=== PATIENT | female | born 1965 | race Caucasian/White ===

== ENCOUNTER → 2019-11-01 | Outpatient (CLI) | payer BC, SELFPAY | PROVIDERS: Family Provider Family Medicine; Visit Provider Family Medicine | DX: G47.10 Hypersomnia, unspecified (principal) ==

== ENCOUNTER → 2020-01-09 17:51 | Outpatient (BNVA) | payer OTHER, SELFPAY | PROVIDERS: Family Provider Family Medicine; PCP Family Medicine; Visit Provider Nurse Practitioner | DX: R05 Cough (principal); R50.9 Fever, unspecified | CPT/HCPCS: 87804 ==

== ENCOUNTER → 2020-03-10 08:31 | Outpatient (BNVA) | payer SELFPAY | PROVIDERS: Family Provider Family Medicine; PCP Family Medicine; Visit Provider Family Medicine | DX: E03.9 Hypothyroidism, unspecified (principal); I10 Essential (primary) hypertension; E11.9 Type 2 diabetes mellitus without complications; K21.9 Gastro-esophageal reflux disease without esophagitis; N95.1 Menopausal and female climacteric states | CPT/HCPCS: 80053; 80061; 82044; 84443; 85025 ==

== ENCOUNTER 2020-03-27 07:31 | Outpatient (CLI) | payer OTHER, SELFPAY ==
--- NOTE | 2020-03-27 07:41 | MM_ITS ---
WS: [id number] SCREENING DIGITAL MAMMOGRAM WITH CAD HISTORY: SCREEN COMPARISON: 02/09/2019, 01/18/2018, 12/06/2016 Bilateral CC and MLO views submitted. Computer aided detection analyzed. Breast composition: There are scattered areas of fibroglandular density. There are multiple asymmetri es in the central LEFT breast. These appear more prominent than on the most recent examinations. Zaira ins are partially obscured. LEFT breast: Spot compression views (CC and MLO). True ML. Ultrasound to follow if abnormality enedina samayoa. MM/[place] [id number] IMPRESSION: BI-RADS: 0-Incomplete: Need additional imaging evaluation FOLLOW UP: Need Additional Imaging
== END 2020-03-27 07:32 | disposition home or self-care (01) ==
LOC: RADSHAW 07:35
PROVIDERS: PCP Family Medicine; Visit Provider Family Medicine
DX: Z12.31 Encounter for screening mammogram for malignant neoplasm of breast (principal); N64.89 Other specified disorders of breast
CPT/HCPCS: 77067

== ENCOUNTER → 2020-04-10 08:10 | Outpatient (BNVA) | payer OTHER, SELFPAY | PROVIDERS: PCP Family Medicine; Visit Provider Family Medicine | DX: E78.5 Hyperlipidemia, unspecified (principal) | CPT/HCPCS: 80053 ==

== ENCOUNTER 2020-04-21 12:15 | Outpatient (CLI) | payer OTHER, SELFPAY ==
--- NOTE | 2020-04-21 12:00 | MM_ITS ---
WS: [id number] LEFT DIGITAL MAMMOGRAPHY WITH CAD CLINICAL INFORMATION: abnormal mammogram COMPARISON: March 27, 2020 TECHNIQUE: 3 views of the left breast were obtained. FINDINGS: The left breast is composed of heterogeneous fibroglandular density tissue, which can limit the detec tion of small underlying mass lesions. Progressed nodular breast tissue in the central left breast. T his is stable since March 27, 2020 but persists on spot compression images. Ultrasound of this area is pending. . ULTRASOUND BREAST LEFT TECHNIQUE: Ultrasound left breast focused area of concern. CLINICAL INFORMATION: abnormal mammogram COMPARISON: Ultrasound December 29, 2016 FINDINGS: Ultrasound left breast performed from the 6 to 12:00 position. Hypoechoic solid appearing lesion with mild lobulations at the 10:00 position. This lesion at the 10:00 position measures 7.7 x 3.9 x 5.7 m m. This lesion is indeterminant and recommend further evaluation with Ultrasound-Guided Biopsy. Multiple additional small subcentimeter hypoechoic cystic lesions with a few areas of ductal dilatati on. These additional lesions have a benign appearance. MM/[place] [id number] IMPRESSION: BI-RADS: 4B-Suspicious: Intermediate FOLLOW UP: US Guided Biopsy Recommended
--- NOTE | 2020-04-21 12:45 | US_ITS ---
WS: [id number] LEFT DIGITAL MAMMOGRAPHY WITH CAD CLINICAL INFORMATION: abnormal mammogram COMPARISON: March 27, 2020 TECHNIQUE: 3 views of the left breast were obtained. FINDINGS: The left breast is composed of heterogeneous fibroglandular density tissue, which can limit the detec tion of small underlying mass lesions. Progressed nodular breast tissue in the central left breast. T his is stable since March 27, 2020 but persists on spot compression images. Ultrasound of this area is pending. . ULTRASOUND BREAST LEFT TECHNIQUE: Ultrasound left breast focused area of concern. CLINICAL INFORMATION: abnormal mammogram COMPARISON: Ultrasound December 29, 2016 FINDINGS: Ultrasound left breast performed from the 6 to 12:00 position. Hypoechoic solid appearing lesion with mild lobulations at the 10:00 position. This lesion at the 10:00 position measures 7.7 x 3.9 x 5.7 m m. This lesion is indeterminant and recommend further evaluation with Ultrasound-Guided Biopsy. Multiple additional small subcentimeter hypoechoic cystic lesions with a few areas of ductal dilatati on. These additional lesions have a benign appearance. US/US breast LT limited* [id number] IMPRESSION: BI-RADS: 4B-Suspicious: Intermediate FOLLOW UP: US Guided Biopsy Recommended
== END 2020-04-21 12:16 | disposition home or self-care (01) ==
LOC: RADSHAW 12:18
PROVIDERS: PCP Family Medicine; Visit Provider Family Medicine
DX: R92.8 Other abnormal and inconclusive findings on diagnostic imaging of breast (principal); N64.89 Other specified disorders of breast
CPT/HCPCS: 76642; 77065

== ENCOUNTER 2020-04-24 10:21 | Outpatient (CLI) | payer OTHER, SELFPAY ==
--- NOTE | 2020-04-24 11:45 | US_ITS ---
WS: [id number] ULTRASOUND-GUIDED LEFT BREAST BIOPSY CLINICAL INFORMATION: ABNORMAL MAMMOGRAM FINDINGS: The procedure including risks, benefits, and complications were discussed with the patient who agreed to proceed. Using sterile technique patient was prepped and draped in the usual sterile fashion. Aft er 1% lidocaine utilizing real-time ultrasound guidance 6 14-gauge cores were obtained of the left br east lesion at the 10 o'clock position. Subsequently a titanium clip was placed in the biopsy cavity. No immediate complications. 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 Uncomplicated ultrasound-guided left breast biopsy. 2. 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 No malignancy or carcinoma in situ identified. FOCAL FLAT EPITHELIAL ATYPIA has been associated with higher risk lesions in so me instances. Recommended breast surgical consultation for consideration of lum pectomy. BI-RADS: 4B-Suspicious: Intermediate FOLLOW UP: Surgical Biopsy Recommended
== END 2020-04-24 10:22 | disposition home or self-care (01) ==
LOC: RAD 10:24
PROVIDERS: PCP Family Medicine; Visit Provider Family Medicine
DX: R92.8 Other abnormal and inconclusive findings on diagnostic imaging of breast (principal); N62 Hypertrophy of breast
CPT/HCPCS: 19083; 88305; J2001

== ENCOUNTER → 2020-05-20 08:26 | Outpatient (BNVA) | payer OTHER, SELFPAY | PROVIDERS: PCP Family Medicine; Visit Provider Family Medicine | DX: E78.5 Hyperlipidemia, unspecified (principal); E83.52 Hypercalcemia | CPT/HCPCS: 80061; 82310; 83970 ==

== ENCOUNTER 2020-06-04 13:49 | Outpatient (CLI) | payer OTHER, SELFPAY ==
--- NOTE | 2020-06-04 14:15 | US_ITS ---
WS: [id number] ULTRASOUND THYROID TECHNIQUE: Ultrasound of the thyroid. CLINICAL INFORMATION: ELEVATED PTH COMPARISON: None. FINDINGS: Thyroid: Right and left thyroid lobes are enlarged with heterogeneous echotexture. The largest nodule in the left lateral thyroid solid in appearance and hypoechoic. This Measures 1.0 x 0.7 x 0.6 cm Right thyroid lobe: 4.4 cm x 1.1 cm x 1.5 cm Left thyroid lobe: 4.0 cm x 0.8 cm x 1.5 cm. Isthmus: 0.3 mm. Cervical lymphadenopathy: None. US/US thyroid [id number] IMPRESSION: 1. Enlarged thyroid with heterogeneous echotexture compatible with goiter. 2. Dominant solid nodule in the left thyroid lobe measures 1.0 CM. Recommend 1 2 month follow-up.
== END 2020-06-04 13:50 | disposition home or self-care (01) ==
LOC: RAD 13:51
PROVIDERS: PCP Family Medicine; Visit Provider Family Medicine
DX: E34.9 Endocrine disorder, unspecified (principal); E04.9 Nontoxic goiter, unspecified; E04.1 Nontoxic single thyroid nodule
CPT/HCPCS: 76536

== ENCOUNTER 2020-06-04 14:54 | Outpatient (CLI) | payer OTHER, SELFPAY ==
--- NOTE | 2020-06-04 15:03 | XR_ITS ---
WS: [id number] DEXA (DUAL ENERGY X-RAY ABSORPTIOMETRY) Bone mineral density was performed using a Ignite100 machine. HISTORY: post menopausal COMPARISON: None available. Lumbar spine BMD (L1-L4): 1.043 g/cm2 T score: -1.1 Z score: -0.7 Total hip BMD: Left: 1.012 g/cm2. T score: 0.0 Z score: 0.4 Right: 1.060 g/cm2. T score: 0.4 Z score: 0.8 10 year probability of a major osteoporotic fracture is 6%. XR/XR DEXA axial skeleton* [id number] IMPRESSION: OSTEOPENIA based upon the WHO classification for females.
== END 2020-06-04 14:55 | disposition home or self-care (01) ==
LOC: RADWPI 14:58
PROVIDERS: PCP Family Medicine; Visit Provider Family Medicine
DX: Z78.0 Asymptomatic menopausal state (principal); M85.89 Other specified disorders of bone density and structure, multiple sites
CPT/HCPCS: 77080

== ENCOUNTER → 2020-06-11 08:54 | Outpatient (BNVA) | payer OTHER, SELFPAY | PROVIDERS: PCP Family Medicine; Visit Provider Internal Medicine | DX: E21.3 Hyperparathyroidism, unspecified (principal); E03.9 Hypothyroidism, unspecified; E04.1 Nontoxic single thyroid nodule; I10 Essential (primary) hypertension | CPT/HCPCS: 99203 ==

== ENCOUNTER 2020-07-02 10:27 | Outpatient (CLI) | payer OTHER, SELFPAY ==
[2020-07-02 11:32] LABS: Calcium 10.7 mg/dL (8.5-10.5); Parathyroid Hormone 50.2 pg/mL (15-65)
[2020-07-02 11:45] LABS: 25 Hydroxy Vitamin D 44 ng/mL (30-100); Thyroid Stimulating Hormone 0.14 uIU/mL (0.27-4.20)
[2020-07-02 12:12] LABS: Free T4 Free Thyroxine 1.84 ng/dL (0.82-1.77)
== END 2020-07-02 10:28 | disposition home or self-care (01) ==
LOC: LAB 10:33
PROVIDERS: PCP Family Medicine; Visit Provider Internal Medicine
DX: E03.9 Hypothyroidism, unspecified (principal); E21.3 Hyperparathyroidism, unspecified
CPT/HCPCS: 82306; 82310; 83970; 84439; 84443

== ENCOUNTER 2020-07-04 07:14 | Outpatient (CLI) | payer OTHER, SELFPAY ==
[2020-07-04 07:42] LABS: Urine Creatinine 44 mg/dL (28-217)
[2020-07-04 08:28] LABS: Total Volume Urine 3800 ml
[2020-07-04 08:29] LABS: Calcium 24 Hour Urine 365 mg/24hr (100-300); Urine Calcium Result 9.6 mg/dL
[2020-07-04 08:47] LABS: Total Volume Urine 3800 ml
== END 2020-07-04 07:15 | disposition home or self-care (01) ==
PROVIDERS: PCP Family Medicine; Visit Provider Internal Medicine
DX: E03.9 Hypothyroidism, unspecified (principal); E21.3 Hyperparathyroidism, unspecified
CPT/HCPCS: 82340; 82570

== ENCOUNTER → 2020-07-16 08:47 | Outpatient (BNVA) | payer OTHER, SELFPAY | PROVIDERS: PCP Family Medicine; Visit Provider Internal Medicine | DX: E03.9 Hypothyroidism, unspecified (principal); E04.1 Nontoxic single thyroid nodule; E21.3 Hyperparathyroidism, unspecified; I10 Essential (primary) hypertension | CPT/HCPCS: 99214 ==

== ENCOUNTER → 2020-09-08 08:27 | Outpatient (BNVA) | payer OTHER, SELFPAY | PROVIDERS: PCP Family Medicine; Visit Provider Family Medicine | DX: I10 Essential (primary) hypertension (principal); Z13.6 Encounter for screening for cardiovascular disorders; M79.641 Pain in right hand; M79.642 Pain in left hand | CPT/HCPCS: 80053; 85025; 85651; 86038; 86140; 86431 ==

== ENCOUNTER → 2020-09-29 09:05 | Outpatient (BNVA) | payer OTHER, SELFPAY | PROVIDERS: PCP Family Medicine; Visit Provider Internal Medicine | DX: M79.641 Pain in right hand (principal); Z79.899 Other long term (current) drug therapy; Z11.59 Encounter for screening for other viral diseases; M79.642 Pain in left hand; D86.9 Sarcoidosis, unspecified; R76.8 Other specified abnormal immunological findings in serum | CPT/HCPCS: 36415; 99204 ==

== ENCOUNTER 2020-09-29 10:08 | Outpatient (CLI) | payer OTHER, SELFPAY ==
--- NOTE | 2020-09-29 10:17 | XR_ITS ---
WS: [id number] TECHNIQUE: 2 views of the right hand CLINICAL INFORMATION: M79.641 - Pain in right hand COMPARISON: None. FINDINGS: Normal metacarpals. Normal MCP joint. Metacarpal heads are normal in appearance. Mild narrowing PIP a nd DIP joints. No evidence of acute fracture or dislocation. Radiocarpal joint: Normal. Carpal bones: Normal. XR/XR hand RT 2V [id number] IMPRESSION: No significant erosive changes.
--- NOTE | 2020-09-29 10:17 | XR_ITS ---
WS: [id number] TECHNIQUE: 2 views of the left hand CLINICAL INFORMATION: M79.641 - Pain in right hand COMPARISON: None. FINDINGS: Normal metacarpals. Normal MCP joint. Metacarpal heads are normal in appearance. Mild narrowing of th e PIP and DIP joints. No evidence of acute fracture or dislocation. Radiocarpal joint: Normal. 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 XR/XR hand LT 2V [id number] IMPRESSION: 1. 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 2. Mild IP joint narrowing. 3. No erosive changes.
== END 2020-09-29 10:09 | disposition home or self-care (01) ==
LOC: RADWPI 10:13
PROVIDERS: PCP Family Medicine; Visit Provider Internal Medicine
DX: M79.641 Pain in right hand (principal); M79.642 Pain in left hand; M19.042 Primary osteoarthritis, left hand
CPT/HCPCS: 73120; 82550; 82728; 85651; 86140; 86431; 86704; 86803; 87340

== ENCOUNTER → 2020-10-07 09:29 | Outpatient (BNVA) | payer OTHER, SELFPAY | PROVIDERS: PCP Family Medicine; Visit Provider Internal Medicine | DX: Z79.899 Other long term (current) drug therapy (principal) | CPT/HCPCS: 36415; 80053; 82550; 84100 ==

== ENCOUNTER → 2020-10-09 09:15 | Outpatient (BNVA) | payer OTHER, SELFPAY | PROVIDERS: PCP Family Medicine; Visit Provider Internal Medicine | DX: Z11.1 Encounter for screening for respiratory tuberculosis; R76.8 Other specified abnormal immunological findings in serum; R74.8 Abnormal levels of other serum enzymes; R79.89 Other specified abnormal findings of blood chemistry; E03.9 Hypothyroidism, unspecified; Z87.891 Personal history of nicotine dependence; M79.641 Pain in right hand; M79.642 Pain in left hand | CPT/HCPCS: 99213 ==

== ENCOUNTER → 2020-10-17 09:42 | Outpatient (BNVA) | payer OTHER, SELFPAY | PROVIDERS: PCP Family Medicine; Visit Provider Internal Medicine | DX: R74.8 Abnormal levels of other serum enzymes (principal); R76.8 Other specified abnormal immunological findings in serum; R79.89 Other specified abnormal findings of blood chemistry; Z79.899 Other long term (current) drug therapy | CPT/HCPCS: 36415; 82550; 82728; 83516 ==

== ENCOUNTER 2020-11-01 12:42 | Observation (INO) | payer OTHER, SELFPAY ==
[2020-11-01] VITALS (13 sets, daily range): BP systolic 113–160; BP diastolic 71–109; PULSE 65–110; RESP 14–21; TEMP 36.3–36.9; O2SAT 93–99; BMI 30.3
--- NOTE | 2020-11-01 | SCC_ITS ---
Procedure: 1. ORIF bimalleolar ankle Grade 1 2. I+D down to bone of medial malleolus 3. Complex closure of 1 cm medial wound 27.2 seconds of fluoroscopic guidance, for a cumulative dose of 0.77 mGy, was provided to Dr. Walters by the radiology department. C-arm images of the LEFT ankle were saved for the patient's permanent record. [facility] HOSPITALTabby
--- NOTE | 2020-11-01 12:50 | XRR_ITS ---
PROCEDURE INFORMATION: Exam: XR Left Ankle Exam date and time: 11/01/2020 12:51 PM Age: 55 years old Clinical indication: Injury or trauma; Fall; Blunt trauma; Ankle; Left; Additional info: Open FX TECHNIQUE: Imaging protocol: XR Left ankle. Views: 3 or more views. COMPARISON: No relevant prior studies available. FINDINGS: Bones/joints: There is a mildly displaced trimalleolar fracture. Soft tissues: Mild soft tissue edema is seen in the medial and lateral ankle XR/XR ankle LT min 3V* [id number] IMPRESSION: 1. Mildly displaced trimalleolar fracture 2. Mild soft tissue edema
--- NOTE | 2020-11-01 12:50 | XRR_ITS ---
PROCEDURE INFORMATION: Exam: XR Chest, 1 View Exam date and time: 11/01/2020 12:51 PM Age: 55 years old Clinical indication: Injury or trauma; Fall; Blunt trauma (contusions or hematomas); Additional info: Dyspnea/cough TECHNIQUE: Imaging protocol: XR of the chest Views: 1 view. COMPARISON: [facility] Chest 2 views 10/24/2014 9:23 AM FINDINGS: Lungs: Unremarkable. No consolidation. Pleural space: Unremarkable. No pleural effusion. No pneumothorax. Heart/Mediastinum: Unremarkable. No cardiomegaly. Bones/joints: Unremarkable. XR/XR chest 1V portable [id number] IMPRESSION: No acute findings.
--- NOTE | 2020-11-01 12:50 | ECG_ITS ---
[facility] Test Date: 2020-11-01 Pat Name: Tamara Plascencia Department: Room: Gender: Female Station Master: : [id number] Requested By: Luis Peter Order Number: [id number] Etienne MD: Dane Velasquez M.D. Measurements Intervals Timpson Rate: 67 P: 50 SC: 151 QRS: 19 QRSD: 86 T: 33 QT: 385 QTc: 409 Interpretive Statements SINUS RHYTHM LOW QRS VOLTAGE IN PRECORDIAL LEADS [QRS DEFLECTION < 1.0 mV IN CHEST LEADS] No previous ECG available for comparison Electronically Signed On 11-01-2020 16:40:25 BRICK CATCHER by Dane Velasquez M.D. [id number]
[2020-11-01] MEDS: ceFAZolin 1,000 MG in sodium chloride 0.9% (plus) 50 ML 100 MG IV (12:58)
[2020-11-01] MEDS: morphine 4 mg/mL SDV 1 mL IVP ×2 (12:58→13:40)
--- NOTE | 2020-11-01 12:58 | W.ED.EXTPRO ---
HPI - Extremity Problem General: Chief complaint: Extremity Injury, Lower Stated complaint: LEFT ANKLE PAIN Time Seen by Provider: 11/01/20 12:50 History of Present Illness: HPI Narrative: 55-year-old female presents emergency room with complaint of left ankle pain. She was climbing on a compost pile and slipped her ankle got caught and turned and she had any eversion injury. Her daughter who is a nurse here at our facility sent to me a picture from the scene of the ankle there is significant eversion. Patient was brought in by EMS on arrival here noted that the patient had a open fracture with a laceration that had bled inside of the blanket splint overlying the medial malleolus. Patient denies any other injury. She last ate around 6 AM today she was tested positive for Covid on August 10 of this year. She is not recently had any cough cold or flu symptoms has completely recovered from the illness. Not strike her head no other injuries. MD Complaint: joint pain Onset (ago): minute(s) Pain Consistency: constant Location: left Severity scale (1-10): 10 Quality: sharp and constant Relieving factors: immobilization and rest Exacerbating factors: palpation Associated symptoms: Deny arthralgias, chest pain, fever(s), myalgias, rash, short of breath or other Review of Systems Const: Denies: fever(s) ENMT: Denies: throat pain, ear or mastoid pain, nasal discharge or nasal congestion Card: Denies: chest pain Resp: Denies: dyspnea, productive cough or non-productive cough GI: Denies: abdominal pain, nausea, vomiting, hematemesis, coffee ground emesis, diarrhea, constipation, bloating, hematochezia or melena : Denies: flank pain, difficulty voiding, dysuria, urinary frequency or urinary urgency Skin/Breast: Denies: rash PFSH ED PFSH: Medical History BI-RADS category 4B mammogram result Essential hypertension History of 2019 novel coronavirus disease (COVID-19) Hot flashes due to menopause Hypothyroidism Mass of soft tissue of lower extremity Plantar fasciitis, bilateral Sleep apnea Varicose veins of left lower extremity Surgical History H/O carpal tunnel repair H/O colonoscopy 7 yrs ago H/O excision of mass left lower leg. DOS:10/26/19 H/O tubal ligation History of appendectomy Family History Denies family history of Diabetes CAD (coronary artery disease) Clotting disorder Dementia Hyperlipidemia Psychiatric illness Chronic kidney disease (CKD) Suicide Anesthesia complication Bleeding disorder Family history of premature coronary artery disease Lung disease Cancer Hypertension Stroke Social History Smoking and tobacco status: former smoker Alcohol intake: never Household members: spouse Marital status: Current occupational status: employed History of recent travel: No Physical Exam Const: COMMON NORMALS: no acute distress GENERAL APPEARANCE: cooperative and comfortable ORIENTATION/CONSCIOUSNESS: Yes awake, Yes oriented to person, Yes oriented to place and Yes oriented to time HENMT: COMMON NORMALS: normocephalic, atraumatic, hearing grossly normal bilaterally, Normal nasal mucous membranes and turbinates present, moist oral mucous membranes and oropharynx normal HEAD & SCALP: normocephalic and atraumatic NOSE: Normal nasal mucous membranes and turbinates present Eye: COMMON NORMALS: Equal, round and reactive pupils present, EOMs intact bilaterally, conjunctivae normal and no scleral icterus CONJUNCTIVA: Yes conjunctivae normal PUPIL: Yes Equal, round and reactive pupils present Neck/C-Spine: COMMON NORMALS: full ROM, no lymphadenopathy and supple Resp: COMMON NORMALS: normal respiratory effort, No retractions, No use of accessory muscles and clear to auscultation bilaterally AUSCULTATION: clear to auscultation bilaterally Cardio: COMMON NORMALS: regular rate, regular rhythm and No murmurs present (Cardio) RATE: regular rate RHYTHM: regular rhythm GI: COMMON NORMALS: Soft to palpation and No hepatosplenomegaly present AUSCULTATION: Yes normoactive bowel sounds PALPATION: Yes Soft to palpation, No Tenderness to palpation present (GI), No Guarding due to palpation present (GI) and Yes No hepatosplenomegaly present Extremity: COMMON NORMALS: capillary refill normal, no clubbing, cyanosis or edema, no calf tenderness and no pedal edema NARRATIVE EXTREMITY EXAM: Open wound as described below in the skin section of the exam. Dorsalis pedis pulse capillary refill and function normal. Neuro: SENSORIUM/ORIENTATION: Yes oriented to person, Yes oriented to place and Yes oriented to time Skin: NARRATIVE SKIN EXAM: Open wound overlying the medial malleolus approximately a centimeter to a centimeter and a half in length there was some bleeding from it earlier evidenced by the blood on the blanket splint there is no active bleeding at this time. Course Vital Signs: Vital signs: Vital Signs Temperature 98.1 F 11/01/20 16:20 Pulse Rate 92 11/01/20 16:20 Respiratory Rate 18 11/01/20 16:20 Blood Pressure 139/80 11/01/20 16:20 Pulse Oximetry 95 11/01/20 16:20 MDM - Extremity (Nontraumatic) MDM Narrative: Medical decision making narrative: X-ray shows a trimalleolar fracture. Exam findings on the skin she has an obvious open fracture of the bone is not exposed at this time but did hernandez the skin. Discussed with Dr. Walters he will take her to the operating room given a gram of Ancef she tells me her tetanus is up-to-date already given her appropriate pain medications her last meal was at 6 AM. Lab Data: Labs: Lab Results 11/01/20 11/01/20 Range/Units 13:24 13:24 WBC 9.2 (4.0-10.0) 10^3/ uL RBC 4.62 (4.1-5.3) 10^6/u L Hgb 14.2 (11.5-15.3) g/dL Hct 41.9 (37.0-47.0) % MCV 90.7 (81-99) fL MCH 30.7 (28.0-34.0) pg MCHC 33.9 (30.0-36.0) g/dL RDW 12.4 (12.1-15.1) % Plt Count 256 (130-400) 10^3/c mm MPV 9.3 (7.4-10.4) fL Neut % (Auto) 65.6 % Lymph % (Auto) 23.1 % Victoria % (Auto) 7.7 % Eos % (Auto) 2.4 % Baso % (Auto) 0.9 % Neut # (Auto) 6.04 (1.8-7.7) 10^3/u L Lymph # (Auto) 2.1 (0.8-4.8) 10^3/u L Victoria # (Auto) 0.7 (0.2-0.9) 10^3/u L Eos # (Auto) 0.2 (0.0-0.8) 10^3/u L Baso # (Auto) 0.1 (0.0-0.1) 10^3/u L Nucleated RBC % (a uto) 0 % Nucleated RBCs # 0.0 /100WBC Sodium 134 L (136-145) mmol/L Potassium 4.2 (3.5-5.1) mmol/L Chloride 99 (98-107) mmol/L Carbon Dioxide 26 (22-29) mmol/L Anion Gap 13.2 (5-19) BUN 24 H (6-20) mg/dL Creatinine 0.6 (0.5-0.9) mg/dL GFR Calculation 103.0 (90-130) mL/min Glucose 106 (65-115) mg/dL Calculated Osmolal ity 282 L (285-295) mOsm/k g Calcium 10.3 (8.5-10.5) mg/dL Total Bilirubin 0.3 (0.15-1.2) mg/dL AST 25 (0-32) U/L ALT 40 H (0-33) U/L Alkaline Phosphata se 78 (35-105) IU/L Total Protein 7.0 (6.6-8.7) g/dL Albumin 4.3 (3.5-5.2) g/dL Globulin 2.7 (1.3-4.6) g/dL Discharge Plan Discharge Admit Provider: Subhash Walters Clinical Impression: Open trimalleolar fracture of left ankle Condition: Stable Coding Level of Care Code ED Readiness Paraprofessional for Chg Fwd Exam Comprehensive
[2020-11-01 13:32] LABS: Basophils # 0.1 10^3/uL (0.0-0.1); Basophils % 0.9 %; Eosinophils # 0.2 10^3/uL (0.0-0.8); Eosinophils % 2.4 %; Hematocrit 41.9 % (37.0-47.0); Hemoglobin 14.2 g/dL (11.5-15.3); Lymphocytes # 2.1 10^3/uL (0.8-4.8); Lymphocytes % 23.1 %; Mean Corpuscular HGB Conc 33.9 g/dL (30.0-36.0); Mean Corpuscular Hemoglobin 30.7 pg (28.0-34.0); Mean Corpuscular Volume 90.7 fL (81-99); Mean Platelet Volume 9.3 fL (7.4-10.4); Monocytes # 0.7 10^3/uL (0.2-0.9); Monocytes % 7.7 %; Neutrophils # 6.04 10^3/uL (1.8-7.7); Neutrophils % 65.6 %; Nucleated Red Blood Cells % 0 %; Platelet Count 256 10^3/cmm (130-400); Red Blood Count 4.62 10^6/uL (4.1-5.3); Red Cell Distribution Width 12.4 % (12.1-15.1); White Blood Count 9.2 10^3/uL (4.0-10.0)
--- NOTE | 2020-11-01 13:59 | PM.HP ---
Providers/Chief Complaint Primary Care Provider: Dedra Vega DO Chief Complaint: LEFT ANKLE PAIN History of Present Illness Tamara Plascencia is a 55 year old female She was climbing on a compost pile and slipped her ankle got caught and turned and she had any eversion injury. Patient was brought in by EMS on arrival here noted that the patient had a open fracture with a laceration that had bled inside of the blanket splint overlying the medial malleolus. Patient denies any other injury. She last ate around 6 AM today she was tested positive for Covid on August 10 of this year. She is not recently had any cough cold or flu symptoms has completely recovered from the illness. Not strike her head no other injuries. MD Complaint: joint pain Onset (ago): minute(s) Pain Consistency: constant Location: left Severity scale (1-10): 10 Quality: sharp and constant Relieving factors: immobilization and rest Exacerbating factors: palpation Associated symptoms: Deny arthralgias, chest pain, fever(s), myalgias, rash, short of breath or other Review of Systems Narrative: General ROS: negative for weight changes, fever ENT ROS: negative for nasal congestion, drainage or bleeding, sore throat, dysphagia or ear pain Eyes: PERRL Hematological and Lymphatic ROS: negative for swollen glands or abnormal bleeding Endocrine ROS: negative for polyuria/polydpsia or new changes in weight Respiratory ROS: negative for cough, shortness of breath, or wheezing Cardiovascular ROS: negative for chest pain or dyspnea on exertion Gastrointestinal ROS: negative for reflux, abdominal pain, change in bowel habits, or black or bloody stools Musculoskeletal ROS: negative for back pain, neck pain, or joint pain or swelling except for current problem Neurological ROS: negative for TIA or stoke symptoms Skin: no rashes Medications/Allergies Home Medications Medication Instructions Recorded Confirmed Last Taken Type loratadine 10 mg capsule 10 mg PO DAILY@11/09/19 11/01/20 11/01/20 History CPAP #1 ea 11/16/19 11/01/20 Unknown Rx atorvastatin 10 mg tablet 10 mg PO DAILY #90 tab 08/18/20 11/01/20 Unknown Rx levothyroxine 125 mcg PO DAILY@04 11/01/20 11/01/20 11/01/20 History lisinopril 20 mg PO DAILY@11/01/20 11/01/20 11/01/20 History pantoprazole 40 mg PO DAILY@09 11/01/20 11/01/20 11/01/20 History Allergies Allergy/AdvReac Type Severity Reaction Status Date / Time No Known Allergies Allergy Verified 11/01/20 12:50 PFSH Acute PFSH: Medical History BI-RADS category 4B mammogram result Essential hypertension History of 2019 novel coronavirus disease (COVID-19) Hot flashes due to menopause Hypothyroidism Mass of soft tissue of lower extremity Plantar fasciitis, bilateral Sleep apnea Varicose veins of left lower extremity Surgical History H/O carpal tunnel repair H/O colonoscopy 7 yrs ago H/O excision of mass left lower leg. DOS:10/26/19 H/O tubal ligation History of appendectomy Family History Denies family history of Diabetes CAD (coronary artery disease) Clotting disorder Dementia Hyperlipidemia Psychiatric illness Chronic kidney disease (CKD) Suicide Anesthesia complication Bleeding disorder Family history of premature coronary artery disease Lung disease Cancer Hypertension Stroke Social History Smoking and tobacco status: former smoker Alcohol intake: never Household members: spouse Marital status: Current occupational status: employed History of recent travel: No Vitals/I&O/Wt Last Vital Signs Temp 97.8 F 11/01/20 12:42 Pulse 65 11/01/20 12:42 Resp 18 11/01/20 12:58 BP 160/109 11/01/20 12:42 Pulse Ox 94 11/01/20 12:42 Weight last 48 hrs Weight 188 lb Physical Exam Narrative: EXAM NARRATIVE: Skin: Intact and healthy Swelling: left ankle in splint reported medial ankle wound Motor exam: Flexes and extends toes Data : 11/01/20 13:24 11/01/20 13:24 A&P Assessment and plan (1) Open bimalleolar fracture of left ankle: Status: Acute Additional A&P Information Plan for I+D and ORIF Attestations Medical Necessity Statement*: surgery Coding Level of Care Code Acute Bartender Server for Federico Shabazz Diagnoses Open bimalleolar fracture of left ankle S82.842B
[2020-11-01 14:00] LABS: Alanine Aminotransferase 40 U/L (0-33); Albumin Level 4.3 g/dL (3.5-5.2); Alkaline Phosphatase 78 IU/L (35-105); Anion Gap 13.2 (5-19); Aspartate Amino Transferase 25 U/L (0-32); Blood Urea Nitrogen 24 mg/dL (6-20); Calcium 10.3 mg/dL (8.5-10.5); Carbon Dioxide 26 mmol/L (22-29); Chloride 99 mmol/L (98-107); Globulin 2.7 g/dL (1.3-4.6); Glucose 106 mg/dL (65-115); Osmolality Calculated 282 mOsm/kg (285-295); Potassium 4.2 mmol/L (3.5-5.1); Sodium 134 mmol/L (136-145); Total Bilirubin 0.3 mg/dL (0.15-1.2)
--- NOTE | 2020-11-01 14:05 | ANES.PREANE2 ---
Pre-Anesthetic Assessment Pre-Anesthetic Assessment: Height/Weight: Height 1.68 m Weight 85.275 kg Temp Pulse Resp BP Pulse Ox 97.8 F 65 18 160/109 94 11/01/20 12:42 11/01/20 12:42 11/01/20 12:58 11/01/20 12:42 11/01/20 12:42 Proposed Procedure: Operation Date: 11/01/20 14:20 Proposed Procedures p ORIF Ankle(Left) - Subhash Walters DO Operation Date: 11/01/20 14:00 Proposed Procedures p ORIF Ankle(Not Applicable) - Subhash Walters DO Was Beta Trina taken within 24 hours: N/A Social: Social History: No alcohol and No tobacco Exam: Pre-Anes Outpt Exam: alert, oriented x 3, clear to auscultation bilaterally and regular rate & rhythm Airway: Submandibular: WNL Cervical ROM: WNL MP: 2 Dentition: Full Pulmonary: Pulmonary: None reported CV/HEM: CV/HEM: HTN : : None reported Hepatic: Hepatic: None reported GI: GI: GERD Metabolic: Metabolic: Thyroid Musc/skel: Comments: Left open ankle frx Neuropsych: Neuropsych: None reported Anesthetic Plan: ASA status: 3 Anesthesia: General Risk of > 500 ml blood loss (7ml/kg in children): No PFSH Anesthesia PFSH: Medical History BI-RADS category 4B mammogram result Essential hypertension History of 2019 novel coronavirus disease (COVID-19) Hot flashes due to menopause Hypothyroidism Mass of soft tissue of lower extremity Plantar fasciitis, bilateral Sleep apnea Varicose veins of left lower extremity Surgical History H/O carpal tunnel repair H/O colonoscopy 7 yrs ago H/O excision of mass left lower leg. DOS:10/26/19 H/O tubal ligation History of appendectomy Family History Denies family history of Diabetes CAD (coronary artery disease) Clotting disorder Dementia Hyperlipidemia Psychiatric illness Chronic kidney disease (CKD) Suicide Anesthesia complication Bleeding disorder Family history of premature coronary artery disease Lung disease Cancer Hypertension Stroke Social History Smoking and tobacco status: former smoker Alcohol intake: never Household members: spouse Marital status: Current occupational status: employed History of recent travel: No Data Anesthesia CBC & Chem 7: 11/01/20 13:24 11/01/20 13:24 Other Labs: Laboratory Results - last 48 hr 11/01/20 11/01/20 13:24 13:24 WBC 9.2 RBC 4.62 Hgb 14.2 Hct 41.9 MCV 90.7 MCH 30.7 MCHC 33.9 RDW 12.4 Plt Count 256 MPV 9.3 Neut % (Auto) 65.6 Lymph % (Auto) 23.1 Ponce % (Auto) 7.7 Eos % (Auto) 2.4 Baso % (Auto) 0.9 Neut # (Auto) 6.04 Lymph # (Auto) 2.1 Ponce # (Auto) 0.7 Eos # (Auto) 0.2 Baso # (Auto) 0.1 Nucleated RBC % (auto) 0 Nucleated RBCs # 0.0 Potassium 4.2 Chloride 99 Carbon Dioxide 26 Anion Gap 13.2 Creatinine 0.6 GFR Calculation 103.0 Glucose 106 Calcium 10.3 Total Bilirubin 0.3 AST 25 Alkaline Phosphatase 78 Total Protein 7.0 Albumin 4.3 Globulin 2.7 Cardiac Studies: No Data to Display
[2020-11-01] MEDS: HYDROmorphone 1 mg/mL INJ 1 mL 0.5 MG IVP (14:07)
[2020-11-01] MEDS: sodium chloride 0.9% 1,000 ML 30 ML IV (14:30)
--- NOTE | 2020-11-01 15:12 | XR_ITS ---
WS: [id number] Exam: XR ankle LT min 3V* [id number] Date/Time of Exam: 11/01/2020 3:12 PM Reason For Exam: OR PICS There is plate and screw fixation involving a fracture of the lower fibula. The fractures is in satis factory alignment for healing. 2 screws also stabilize a fracture of the medial malleolus in satisfac tory alignment. Small posterior shelf tibial fracture is noted with minimal displacement. This does n ot involve a significant part of the articulating surface of the lower tibia. XR/XR ankle LT min 3V* [id number] IMPRESSION: 1. Bimalleolar fracture stabilized with internal orthopedic fixation in satisfa ctory alignment. 2. Small posterior shelf tibial fracture without displacement.
--- NOTE | 2020-11-01 16:11 | ANE.PACU2 ---
Inpatient post-anesthesia follow up: Airway intact: Yes Vital signs: Temperature 97.4 F Pulse Rate [Monito r] 65 Pulse Rate 93 Respiratory Rate 15 Blood Pressure [Ri ght Arm] 160/109 Blood Pressure 145/86 Pulse Oximetry 99 Oxygen Delivery Me thod Simple Mask Oxygen Flow Rate 8 Fraction of Inspir ed Oxygen Hydration adequate: Yes Nausea and vomiting: No Pain level: 2 Additional Comments: Sedated
--- NOTE | 2020-11-01 16:20 | PM.OP ---
Operative Report Date of procedure: November 01, 2020 Pre-op Diagnosis: left open ankle fracture bimalleolar Type I open Post-op diagnosis: same Post-op Findings: 1. ORIF bimalleolar ankle Grade 1 2. I+D down to bone of medial malleolus 3. complex closure of 1 cm wound Surgeon: Subhash Walters Anesthesia: General Estimated blood loss (mL): 25 Condition: stable Disposition: PACU Procedure: 1. ORIF bimalleolar ankle Grade 1 2. I+D down to bone of medial malleolus 3. Complex closure of 1 cm medial wound Patient is brought to the operative suite placed in the supine position all areas impingement were well-padded patient's prepped and draped sterile fashion. Tenderness brought to the medial malleolus where the wound was it had approximately 1 cm wound. The wound was extended superiorly inferiorly. Was debrided a small piece of bone was taken out. Wound was debrided all the way down to the bone. Next attention was brought to the lateral malleolus. Skin tear is made over the lateral malleolus. Fracture fragments were identified. The fibula was opened and exposed fractures identified edges were cleaned fracture was reduced and injury to posterior screws placed to hold the fracture reduced. And then a Jeanette fibular plate lateral fibular plate was placed 3 screws were placed distal to fracture 3 screws proximally fracture. Next attention was brought to the medial malleolus. The fracture was cleaned more and irrigated. And then the fracture was reduced. The medial malleolus was held reduced with a [id number] reduction clamp. And then 2 guidewires for the cannulated screws were placed. 240 cannulated screws from Jeanette were placed to hold the fracture in place. These were sized 46 screws. AP lateral mortise views were taken to ensure that the fracture was adequately reduced and the screws were in preposition. Next attention was brought to closing the wounds. The medial wound was closed in a layered fashion this was the open wound. This was done using Vicryl and then nylon suture. The fibula incision was closed with Vicryl and nylon suture as well. Patient was then placed in a posterior splint and transferred to the PACU in stable condition
[2020-11-01] MEDS: HYDROcodone-acetaminophen 5-325 mg Tablet PO ×2 (17:13→21:04)
[2020-11-01] MEDS: acetaminophen 500 mg Tablet 1000 MG PO (17:14)
[2020-11-01] MEDS: morphine 4 mg/mL SDV 1 mL 1 MG IVP (20:04)
[2020-11-01] MEDS: sodium chloride 0.9% 1,000 ML 80 ML IV (21:05)
[2020-11-02] VITALS: BP 119/72; PULSE 82; RESP 16; O2SAT 95
[2020-11-02] MEDS: acetaminophen 500 mg Tablet 1000 MG PO (00:15)
[2020-11-02 00:45] VITALS: PULSE 78; RESP 18; O2SAT 96
[2020-11-02] MEDS: HYDROcodone-acetaminophen 5-325 mg Tablet PO ×3 (01:10→13:26)
[2020-11-02 04:00] VITALS: BP 104/65; PULSE 73; RESP 16; O2SAT 97
[2020-11-02] MEDS: enoxaparin 40 mg/0.4 mL Syringe SUBCUT (04:27)
[2020-11-02] MEDS: levothyroxine 125 mcg Tablet PO (04:27)
[2020-11-02] MEDS: loratadine 10 mg Tablet PO (06:28)
[2020-11-02] MEDS: lisinopril 20 mg Tablet PO (06:28)
[2020-11-02] MEDS: pantoprazole DR 40 mg Tablet PO (09:03)
--- NOTE | 2020-11-02 09:53 | PM.DCS ---
Discharge Providers Date of Admission: 11/01/20 15:36 Date of Discharge: November 02, 2020 Attending Provider at Admission: Subhash Walters DO Attending Provider at Discharge: Subhash Walters DO Primary Care Provider: Dedra Vega DO Diagnoses at Discharge Discharge Diagnosis (1) Open bimalleolar fracture of left ankle: Status: Acute Reason for Visit Reason for Visit: LEFT ANKLE PAIN Hospital Course Hospital Course Patient was admitted to the hospital after open reduction internal fixation and irrigation and debridement of her left open ankle fracture. She was kept in the hospital for 2 doses of antibiotics. She will be discharged home today. She is to remain nonweightbearing on this left lower extremity. She does take aspirin for DVT prophylaxis. I will see her in the clinic in 2 weeks. There were no issues with her stay. Physical Exam Narrative: EXAM NARRATIVE: Splint is intact in the left lower extremity. Patient is able to wiggle her toes good cap refill sensation is intact. Discharge Data Data Completed and Pending: Completed Studies During Hospitalization Category Date Time Status XR ankle LT min 3 V* [id number] Stat Exams 11/01/20 12:50 Completed XR chest 1V joseline ble [id number] Stat Exams 11/01/20 12:50 Completed Pending at discharge Category Date Time Status C-arm Fluoroscopy [id number] Routine Exams 11/01/20 13:31 Taken XR ankle LT min 3 V* [id number] Routine Exams 11/01/20 15:12 Taken Labs from last 24 hours 11/01/20 11/01/20 13:24 13:24 WBC 9.2 RBC 4.62 Hgb 14.2 Hct 41.9 MCV 90.7 MCH 30.7 MCHC 33.9 RDW 12.4 Plt Count 256 MPV 9.3 Neut % (Auto) 65.6 Lymph % (Auto) 23.1 [place] % (Auto) 7.7 Eos % (Auto) 2.4 Baso % (Auto) 0.9 Neut # (Auto) 6.04 Lymph # (Auto) 2.1 [place] # (Auto) 0.7 Eos # (Auto) 0.2 Baso # (Auto) 0.1 Nucleated RBC % (a uto) 0 Nucleated RBCs # 0.0 Sodium 134 L Potassium 4.2 Chloride 99 Carbon Dioxide 26 Anion Gap 13.2 BUN 24 H Creatinine 0.6 GFR Calculation 103.0 Glucose 106 Calculated Osmolal ity 282 L Calcium 10.3 Total Bilirubin 0.3 AST 25 ALT 40 H Alkaline Phosphata se 78 Total Protein 7.0 Albumin 4.3 Globulin 2.7 Vitals: Last Vital Signs Temp 97.7 F 11/01/20 21:34 Pulse 73 11/02/20 04:00 Resp 16 11/02/20 04:00 BP 104/65 11/02/20 04:00 Pulse Ox 97 11/02/20 04:00 Discharge Plan Discharge Patient Disposition: Home Condition: Stable Prescriptions: New hydrocodone-acetaminophen 5-325 mg Tablet 1 - 2 tab PO Q4H PRN (Reason: Breakthrough Pain) Qty: 40 RF: 0 Continued loratadine 10 mg capsule 10 mg PO DAILY@06 RF: 0 (DME) CPAP Qty: 1 RF: 0 atorvastatin 10 mg tablet 10 mg PO DAILY Qty: 90 RF: 0 lisinopril 20 mg tablet 20 mg PO DAILY@06 RF: 0 pantoprazole 40 mg tablet,delayed release (DR/EC) 40 mg PO DAILY@09 RF: 0 levothyroxine 125 mcg capsule 125 mcg PO DAILY@04 RF: 0 Discharge Orders: Discharge Order (Routine); Ordered 11/02/20 Ordered By: Subhash Walters Other Ambulatory Orders: DME: Walker (Order) Location: None Selected Ordered By: Subhash Walters Discharge Diet: Advance as tolerated and Usual diet Discharge Activity: Limit activity as instructed Activity Restrictions/Additional Instructions: You are being discharged from the hospital today during which time you have been under the care of Selena. You had a open left ankle fracture fracture. You were treated for this injury with ORIF left ankle. You may resume you normal diet (including any special diets as directed by your primary doctor) as well as your home medications. You should follow up with you primary doctor if you have any questions regarding medication you took prior to your stay in the hospital. You may take your pain medication as prescribed. After the first few days, take your pain medication as needed. Do not drive or drink alcohol while taking your pain medication. Your injury may increase your risk of developing a blood clot,or DVT, in your arm or leg. This could potentially dislodge and travel to your lungs and become a life threatening condition called apulmonary embolus,or PE. You have been prescribed aspirin to be taken to prevent this. Frequent movement of the toes will also help prevent this from occurring. If you develop any new or worsening cough, chestpain, bloody sputum or shortness of breath, call 911 or go to the EmergencyRoom. Always keep your surgical incision/dressing clean and dry. If you experience increasing pain at your incision site, redness, swelling, increasing discharge, foul odors, or fevers (greater than 100.4), night sweats or chills you should call the office at the above number. If you feel this is an emergency you should be evaluated in the Emergency Department of a nearby hospital. Orthopedic Patient Instructions Summary: Weight Bearing: Nonweightbearing left lower extremity Activity: As tolerated. Diet: Regular. Splint Care: Keep splint clean and dry. Cover with a plastic bag for bathing. Wound Care: Keep dressing clean and dry. Anticoagulation: Aspirin a day Pain Medication: Take only as needed. Ice, rest and elevation will be of great benefit. Please plan to follow-up [facility] Dr Walters in 2 weeks. You will need to call the clinic [phone] to schedule this visit. Thank you far allowing me to participate in your care. Do not hesitate to call the office with any questions or concerns. Discharge Attestations Time Spent in Discharge Care*: less than 30 min Quality Metrics Clinical Quality Measures During this hospital stay, did patient experience: None Coding Level of Care Code Acute Developer Support Engineer for Federico Shabazz Diagnoses Open bimalleolar fracture of left ankle S82.842B
--- NOTE | 2020-11-02 10:28 | DCPLANNER ---
Field Operations Farm Manager responds to walker order on this pt that is currently overflow in the OB. Per her nurse; use HOME. Field Operations Farm Manager faxes the unsigned order to HOME and phones the Telegraphic Typewriter Operator professional housing consultant - Iván. He will be here with it in less than an hour.
[2020-11-02 12:56] VITALS: BP 110/69; PULSE 77; RESP 17; TEMP 36.7
[2020-11-02 13:45] VITALS: BP 110/69; PULSE 77; RESP 17; TEMP 36.7
== END 2020-11-02 13:45 | disposition home or self-care (01) ==
LOC: ER 13:06 → OR 13:14 → OBGYN 16:43
PROVIDERS: Admitting Provider Orthopaedic Surgery; Emergency Provider Family Medicine; PCP Family Medicine; Visit Provider Orthopaedic Surgery
PROC: (CPT 11012; principal; 2020-11-01 14:00)
DX: S82.842B Displaced bimalleolar fracture of left lower leg, initial encounter for open fracture type I or II (principal); R26.81 Unsteadiness on feet; I10 Essential (primary) hypertension; K21.9 Gastro-esophageal reflux disease without esophagitis; Z86.19 Personal history of other infectious and parasitic diseases; E03.9 Hypothyroidism, unspecified; G47.30 Sleep apnea, unspecified; Z87.891 Personal history of nicotine dependence
CPT/HCPCS: 11012; 12031; 27814; 12345; 71045; 73610; 76000; 80053; 85025; 93005; 96361; 96365; 96366; 96367; 96372; 96375; 96376; 97116; 97161; 97165; 99282; 99285; C1713; G0378; J0131; J0690; J1100; J1170; J1650; J1885; J2270; J2405; J2704; J2710; J3010; J3490; J7030

== ENCOUNTER → 2020-11-18 14:09 | Outpatient (BNVA) | payer OTHER, SELFPAY | PROVIDERS: PCP Family Medicine; Visit Provider Orthopaedic Surgery | DX: S82.842B Displaced bimalleolar fracture of left lower leg, initial encounter for open fracture type I or II (principal) | CPT/HCPCS: 73610 ==

== ENCOUNTER 2020-11-18 15:28 | Outpatient (CLI) | payer OTHER, SELFPAY | END 2020-11-18 15:29 | disposition home or self-care (01) | LOC: SPT 15:33 | PROVIDERS: PCP Family Medicine; Visit Provider Orthopaedic Surgery | DX: Z46.89 Encounter for fitting and adjustment of other specified devices (principal); Z48.89 Encounter for other specified surgical aftercare; S82.842B Displaced bimalleolar fracture of left lower leg, initial encounter for open fracture type I or II; X58.XXXD Exposure to other specified factors, subsequent encounter | CPT/HCPCS: 97760; L4361 ==

== ENCOUNTER → 2020-12-16 13:46 | Outpatient (BNVA) | payer OTHER, SELFPAY | PROVIDERS: PCP Family Medicine; Visit Provider Orthopaedic Surgery | DX: S82.842B Displaced bimalleolar fracture of left lower leg, initial encounter for open fracture type I or II (principal); Z48.89 Encounter for other specified surgical aftercare; X58.XXXA Exposure to other specified factors, initial encounter | CPT/HCPCS: 73610 ==

== ENCOUNTER 2020-12-19 13:32 | Outpatient (RCR) | payer OTHER, SELFPAY | END 2021-01-04 23:59 | disposition home or self-care (01) | LOC: SPT 13:32 | PROVIDERS: PCP Family Medicine; Referring Provider Orthopaedic Surgery; Visit Provider Orthopaedic Surgery | DX: Z47.89 Encounter for other orthopedic aftercare (principal) | CPT/HCPCS: 97110; 97161 ==

== ENCOUNTER → 2020-12-30 14:00 | Outpatient (BNVA) | payer OTHER, SELFPAY | PROVIDERS: PCP Family Medicine; Visit Provider Internal Medicine | DX: R74.8 Abnormal levels of other serum enzymes (principal); R76.8 Other specified abnormal immunological findings in serum; M79.641 Pain in right hand; M79.642 Pain in left hand; Z87.891 Personal history of nicotine dependence | CPT/HCPCS: 99214 ==

== ENCOUNTER 2020-12-31 13:37 | Outpatient (CLI) | payer OTHER, SELFPAY ==
[2020-12-31 14:07] LABS: Add Urine Microscopic? NO
[2020-12-31 14:21] LABS: Bilirubin Urine Neg (Negative); Blood Urine Neg (Negative); Glucose Urine UA Norm (Normal); Ketones Urine Negative (Negative); Nitrate Urine Negative (Negative); Protein Urine Neg (Negative); Urine Appearance Clear (CLEAR); Urine Color Yellow (Yellow); pH Urine 7 (5-7)
[2020-12-31 14:22] LABS: Leukocyte Esterase Urine Negative (Negative); Urobilinogen Urine Norm (Negative)
[2020-12-31 14:27] LABS: Basophils # 0.1 10^3/uL (0.0-0.1); Basophils % 1.3 %; Eosinophils # 0.2 10^3/uL (0.0-0.8); Eosinophils % 2.7 %; Hemoglobin 14.6 g/dL (11.5-15.3); Lymphocytes # 2.9 10^3/uL (0.8-4.8); Lymphocytes % 38.2 %; Mean Corpuscular HGB Conc 34.8 g/dL (30.0-36.0); Mean Corpuscular Hemoglobin 31.3 pg (28.0-34.0); Mean Corpuscular Volume 90.1 fL (81-99); Mean Platelet Volume 9.6 fL (7.4-10.4); Monocytes # 0.6 10^3/uL (0.2-0.9); Monocytes % 7.5 %; Neutrophils # 3.83 10^3/uL (1.8-7.7); Neutrophils % 49.9 %; Nucleated Red Blood Cells % 0 %; Platelet Count 289 10^3/cmm (130-400); Red Blood Count 4.66 10^6/uL (4.1-5.3); Red Cell Distribution Width 11.9 % (12.1-15.1); White Blood Count 7.7 10^3/uL (4.0-10.0)
[2020-12-31 14:33] LABS: Alanine Aminotransferase 30 U/L (0-33); Albumin Level 4.4 g/dL (3.5-5.2); Alkaline Phosphatase 82 IU/L (35-105); Anion Gap 15.7 (5-19); Aspartate Amino Transferase 19 U/L (0-32); Blood Urea Nitrogen 16 mg/dL (6-20); C Reactive Protein 0.5 mg/L (0.0-4.9); Calcium 10.5 mg/dL (8.5-10.5); Carbon Dioxide 25 mmol/L (22-29); Chloride 103 mmol/L (98-107); Creatine Phosphokinase 87 U/L (26-192); Globulin 2.7 g/dL (1.3-4.6); Glucose 127 mg/dL (65-115); Osmolality Calculated 293 mOsm/kg (285-295); Phosphorus 3.6 mg/dL (2.5-4.5); Potassium 3.7 mmol/L (3.5-5.1); Sodium 140 mmol/L (136-145); Total Bilirubin 0.2 mg/dL (0.15-1.2); Total Protein 7.1 g/dL (6.6-8.7)
[2020-12-31 15:36] LABS: Erythrocyte Sedimentation Rate 9 mm/hr (0-15)
== END 2020-12-31 13:38 | disposition home or self-care (01) ==
LOC: LAB 13:40
PROVIDERS: PCP Family Medicine; Visit Provider Internal Medicine
DX: R74.8 Abnormal levels of other serum enzymes (principal); D86.9 Sarcoidosis, unspecified
CPT/HCPCS: 36415; 80053; 81003; 82550; 84100; 85025; 85651; 86140

== ENCOUNTER 2021-01-05 06:00 | Outpatient (RCR) | payer OTHER, SELFPAY | END 2021-02-04 23:59 | disposition home or self-care (01) | LOC: SPT 06:00 | PROVIDERS: PCP Family Medicine; Referring Provider Orthopaedic Surgery; Visit Provider Orthopaedic Surgery | DX: Z46.89 Encounter for fitting and adjustment of other specified devices (principal) | CPT/HCPCS: 97110 ==

== ENCOUNTER 2021-01-19 09:10 | Outpatient (CLI) | payer OTHER, SELFPAY ==
--- NOTE | 2021-01-19 09:30 | MM_ITS ---
WS: [id number] Left breast diagnostic digital mammogram, 01/19/2021 Clinical Data: left breast lump Comparison: 04/21/2020, 03/27/2020, 02/09/2019, 01/18/2018, 12/09/2016, 12/06/2016, 12/03/2015, 10/11/2014, , 10/10/2009. Findings: There is a biopsy clip in the central portion of the left breast 3.5 cm from the nipple. The density present on the prior study is no longer seen. There are no spiculated masses nor clustered calcificat ions. MM/[place] [id number] Impression: 1. Removal of small density in central portion of the left breast with residual biopsy clip. 2. Left breast ultrasound will be performed. BIRADS: 2-Benign FOLLOW UP: Need Additional Imaging The CAD cashier or checker stock clerk was used.
--- NOTE | 2021-01-19 10:15 | US_ITS ---
WS: [id number] Left breast ultrasound, 01/19/2021 Clinical Data: left breast lump Comparison: Left breast ultrasound, 04/24/2020. Findings: 2 cm from the nipple there is a possible biopsy clip. No residual lesion is seen in the area. There a re no calcifications or cysts present US/US breast LT limited* [id number] Impression: 1. Possible biopsy clip posterior to the left nipple. 2. No evidence of residual lesion. BIRADS: 2-Benign FOLLOW UP: 1 Year Follow-up
== END 2021-01-19 09:11 | disposition home or self-care (01) ==
LOC: RADSHAW 09:12
PROVIDERS: PCP Family Medicine; Visit Provider Surgery
DX: N63.20 Unspecified lump in the left breast, unspecified quadrant (principal)
CPT/HCPCS: 76642; 77065

== ENCOUNTER → 2021-02-03 10:27 | Outpatient (BNVA) | payer OTHER, SELFPAY | PROVIDERS: PCP Family Medicine; Visit Provider Orthopaedic Surgery | DX: S82.842B Displaced bimalleolar fracture of left lower leg, initial encounter for open fracture type I or II (principal); Z48.89 Encounter for other specified surgical aftercare; X58.XXXA Exposure to other specified factors, initial encounter | CPT/HCPCS: 73610 ==

== ENCOUNTER 2021-02-05 06:00 | Outpatient (RCR) | payer OTHER, SELFPAY | END 2021-03-06 23:59 | disposition home or self-care (01) | LOC: SPT 06:00 | PROVIDERS: PCP Family Medicine; Referring Provider Orthopaedic Surgery; Visit Provider Orthopaedic Surgery | DX: Z47.89 Encounter for other orthopedic aftercare (principal) | CPT/HCPCS: 97110; 97116 ==

== ENCOUNTER 2021-06-16 07:01 | Outpatient (CLI) | payer OTHER, SELFPAY ==
[2021-06-16 07:39] LABS: Basophils # 0.1 10^3/uL (0.0-0.1); Basophils % 1.9 %; Eosinophils # 0.3 10^3/uL (0.0-0.8); Hematocrit 44.6 % (37.0-47.0); Hemoglobin 15.1 g/dL (11.5-15.3); Lymphocytes # 2.9 10^3/uL (0.8-4.8); Lymphocytes % 43.3 %; Mean Corpuscular HGB Conc 33.9 g/dL (30.0-36.0); Mean Corpuscular Hemoglobin 30.6 pg (28.0-34.0); Mean Corpuscular Volume 90.3 fL (81-99); Monocytes # 0.7 10^3/uL (0.2-0.9); Monocytes % 9.9 %; Neutrophils # 2.74 10^3/uL (1.8-7.7); Neutrophils % 40.6 %; Nucleated Red Blood Cells % 0 %; Platelet Count 246 10^3/cmm (130-400); Red Blood Count 4.94 10^6/uL (4.1-5.3); Red Cell Distribution Width 12.1 % (12.1-15.1); White Blood Count 6.8 10^3/uL (4.0-10.0)
[2021-06-16 08:18] LABS: Alanine Aminotransferase 42 U/L (0-33); Albumin Level 4.5 g/dL (3.5-5.2); Alkaline Phosphatase 86 IU/L (35-105); Anion Gap 16.5 (5-19); Aspartate Amino Transferase 21 U/L (0-32); Blood Urea Nitrogen 16 mg/dL (6-20); C Reactive Protein 1.1 mg/L (0.0-4.9); Calcium 9.7 mg/dL (8.5-10.5); Carbon Dioxide 23 mmol/L (22-29); Chloride 98 mmol/L (98-107); Free T4 Free Thyroxine 2.05 ng/dL (0.82-1.77); Globulin 2.5 g/dL (1.3-4.6); Glomerular Filtration Rate 126.7 mL/min (90-130); Glucose 104 mg/dL (65-115); Osmolality Calculated 277 mOsm/kg (285-295); Potassium 4.5 mmol/L (3.5-5.1); Sodium 133 mmol/L (136-145); Total Bilirubin 0.5 mg/dL (0.15-1.2)
[2021-06-16 08:19] LABS: Calcium 9.9 mg/dL (8.5-10.5)
[2021-06-16 08:27] LABS: Parathyroid Hormone 55.2 pg/mL (15-65)
[2021-06-16 08:56] LABS: Erythrocyte Sedimentation Rate 11 mm/hr (0-15)
[2021-06-17 06:48] LABS: T3 Total 127 ng/dL (76-181)
== END 2021-06-16 07:02 | disposition home or self-care (01) ==
LOC: LAB 07:10
PROVIDERS: Internal Medicine; PCP Family Medicine; Visit Provider Internal Medicine
DX: Z79.899 Other long term (current) drug therapy (principal); R74.8 Abnormal levels of other serum enzymes; R76.8 Other specified abnormal immunological findings in serum; E04.1 Nontoxic single thyroid nodule; E21.3 Hyperparathyroidism, unspecified
CPT/HCPCS: 36415; 80053; 82310; 83970; 84439; 84443; 84480; 85025; 85651; 86140

== ENCOUNTER 2021-07-20 07:18 | Outpatient (CLI) | payer OTHER, SELFPAY ==
[2021-07-20 08:08] LABS: Free T4 Free Thyroxine 1.74 ng/dL (0.82-1.77)
[2021-07-20 08:27] LABS: 25 Hydroxy Vitamin D 38 ng/mL (30-100)
== END 2021-07-20 07:19 | disposition home or self-care (01) ==
PROVIDERS: PCP Family Medicine; Visit Provider Internal Medicine
DX: E03.9 Hypothyroidism, unspecified (principal); E21.3 Hyperparathyroidism, unspecified
CPT/HCPCS: 36415; 82306; 84439

== ENCOUNTER → 2021-08-17 09:34 | Outpatient (BNVA) | payer OTHER, SELFPAY | PROVIDERS: PCP Family Medicine; Visit Provider Internal Medicine | DX: R74.8 Abnormal levels of other serum enzymes (principal); R76.8 Other specified abnormal immunological findings in serum; Z87.891 Personal history of nicotine dependence | CPT/HCPCS: 99213 ==

== ENCOUNTER → 2021-09-17 12:03 | Outpatient (BNVA) | payer OTHER, SELFPAY | PROVIDERS: PCP Family Medicine; Visit Provider Family Medicine | DX: I10 Essential (primary) hypertension (principal) | CPT/HCPCS: 82043 ==

== ENCOUNTER 2021-11-06 09:52 | Outpatient (CLI) | payer OTHER, SELFPAY | END 2021-11-06 09:53 | disposition home or self-care (01) | LOC: LAB 09:54 | PROVIDERS: PCP Family Medicine; Visit Provider Family Medicine | DX: I10 Essential (primary) hypertension (principal) | CPT/HCPCS: 80061 ==

== ENCOUNTER 2022-02-01 | Outpatient (CLI) | payer OTHER, SELFPAY | END 2022-02-01 23:59 | disposition home or self-care (01) | LOC: RAD 06-08 14:19 | PROVIDERS: PCP Family Medicine; Visit Provider Family Medicine | DX: Z01.419 Encounter for gynecological examination (general) (routine) without abnormal findings (principal) | CPT/HCPCS: 88175 ==

== ENCOUNTER 2022-02-19 07:45 | Outpatient (CLI) | payer OTHER, SELFPAY ==
[2022-02-19 08:45] LABS: Add Urine Microscopic? NO; Charge for UA Resulting for Rev
[2022-02-19 08:47] LABS: Erythrocyte Sedimentation Rate 2 mm/hr (0-15)
[2022-02-19 09:00] LABS: Bilirubin Urine Neg (Negative); Blood Urine Neg (Negative); Glucose Urine UA Norm (Normal); Ketones Urine Negative (Negative); Leukocyte Esterase Urine Negative (Negative); Nitrate Urine Negative (Negative); Protein Urine Neg (Negative); Specific Gravity, Urine 1.015 (1.005-1.030); Urine Appearance Clear (CLEAR); Urine Color Straw (Yellow); Urobilinogen Urine Norm (Negative); pH Urine 6 (5-7)
[2022-02-19 09:08] LABS: Calcium 9.8 mg/dL (8.5-10.5)
[2022-02-19 09:19] LABS: Chol HDL Ratio 3.05 mg/dL (0.0-4.40); Cholesterol 201 mg/dL (0-200); Creatine Phosphokinase 229 U/L (26-192); Free T4 Free Thyroxine 1.76 ng/dL (0.82-1.77); HDL Cholesterol 66 mg/dL (60-100); LDL Cholesterol Calculated 109 mg/dL (50-129); LDL HDL Ratio 1.65 RATIO (0.00-3.22); Phosphorus 3.5 mg/dL (2.5-4.5); Thyroid Stimulating Hormone 1.01 uIU/mL (0.27-4.20); Triglycerides 130 mg/dL (0-150)
[2022-02-19 09:37] LABS: Parathyroid Hormone 48.6 pg/mL (15-65)
== END 2022-02-19 07:46 | disposition home or self-care (01) ==
LOC: LAB 07:50
PROVIDERS: Internal Medicine; PCP Family Medicine; Visit Provider Family Medicine
DX: R74.8 Abnormal levels of other serum enzymes (principal); E78.5 Hyperlipidemia, unspecified; E03.9 Hypothyroidism, unspecified; E21.3 Hyperparathyroidism, unspecified
CPT/HCPCS: 36415; 80061; 81003; 82310; 82550; 83970; 84100; 84439; 84443; 85651; 86140

== ENCOUNTER 2022-04-20 09:32 | Outpatient (CLI) | payer OTHER, SELFPAY ==
--- NOTE | 2022-04-20 09:37 | MM_ITS ---
WS: [id number] DIAGNOSTIC BILATERAL DIGITAL BREAST TOMOSYNTHESIS MAMMOGRAPHY WITH CAD Bilateral breast ultrasound, limited. HISTORY: ABNORMAL MAMMO COMPARISON: 01/19/2021, 04/21/2020, 03/27/2020 and 02/09/2019 TECHNIQUE: Bilateral craniocaudad, mediolateral oblique, and mediolateral views are submitted with to mosynthesis and SM. Spot compression LEFT CC. Computer aided detection utilized. Breast composition: There are scattered areas of fibroglandular density. Biopsy clip noted within the anterior LEFT breast. There are 2 subcentimeter nodules noted which were not seen on the prior study . One within each breast. In the LEFT breast towards 8:00, 8mm nodule. In the RIGHT breast near 6:00 a 5 mm nodule. These may be lymph nodes. Otherwise the mild asymmetry noted within the central LEFT b reast is remains stable. Bilateral breast ultrasound, limited. RIGHT breast: Ultrasound from 5-7 o'clock is negative. No mass identified. LEFT breast: Ultrasound from 6-9 o'clock demonstrates no abnormality. MM/[place] [id number] IMPRESSION: BI-RADS: 3-Probably Benign FOLLOW UP: 6 Month Follow-up There are new subcentimeter nodules within each breast which cannot be identifi ed by ultrasound. These may be small lymph nodes. Recommend bilateral diagnosti c imaging in 6 months.
--- NOTE | 2022-04-20 10:38 | US_ITS ---
WS: [id number] DIAGNOSTIC BILATERAL DIGITAL BREAST TOMOSYNTHESIS MAMMOGRAPHY WITH CAD Bilateral breast ultrasound, limited. HISTORY: ABNORMAL MAMMO COMPARISON: 01/19/2021, 04/21/2020, 03/27/2020 and 02/09/2019 TECHNIQUE: Bilateral craniocaudad, mediolateral oblique, and mediolateral views are submitted with to mosynthesis and SM. Spot compression LEFT CC. Computer aided detection utilized. Breast composition: There are scattered areas of fibroglandular density. Biopsy clip noted within the anterior LEFT breast. There are 2 subcentimeter nodules noted which were not seen on the prior study . One within each breast. In the LEFT breast towards 8:00, 8mm nodule. In the RIGHT breast near 6:00 a 5 mm nodule. These may be lymph nodes. Otherwise the mild asymmetry noted within the central LEFT b reast is remains stable. Bilateral breast ultrasound, limited. RIGHT breast: Ultrasound from 5-7 o'clock is negative. No mass identified. LEFT breast: Ultrasound from 6-9 o'clock demonstrates no abnormality. US/US breast BI limited* [id number] IMPRESSION: BI-RADS: 3-Probably Benign FOLLOW UP: 6 Month Follow-up There are new subcentimeter nodules within each breast which cannot be identifi ed by ultrasound. These may be small lymph nodes. Recommend bilateral diagnosti c imaging in 6 months.
== END 2022-04-20 09:33 | disposition home or self-care (01) ==
LOC: RAD 09:35
PROVIDERS: PCP Family Medicine; Visit Provider Family Medicine
DX: R92.8 Other abnormal and inconclusive findings on diagnostic imaging of breast (principal)
CPT/HCPCS: 76642; 77062

== ENCOUNTER 2022-04-21 08:33 | Outpatient (CLI) | payer OTHER, SELFPAY ==
--- NOTE | 2022-04-21 08:45 | US_ITS ---
WS: [id number] THYROID ULTRASOUND HISTORY: Checking nodule size. COMPARISON: 06/04/2020 Right lobe: 1.1 cm x 1.2 cm x 3.3 cm (w x ap x l). Volume: 2.2 cm3. Small heterogeneous lobular gland. No mass or nodule or increased vascularity. Gland has decreased in size since the prior study. No adenopathy. Left lobe: 1.3 cm x 1.2 cm x 3.5 cm (w x ap x l). Volume: 2.9 cm3. Small atrophic gland with heterogeneity. Previously described nodule is not visualized today. Small b enign cervical chain lymph nodes. Isthmus: 0.4 cm. US/US thyroid [id number] IMPRESSION: 1. Thyroid is decrease in size since the prior examination. 2. There is no discrete well-formed nodule on today's examination. Very hetero geneous gland without a discrete nodule.
== END 2022-04-21 08:34 | disposition home or self-care (01) ==
LOC: RAD 08:34
PROVIDERS: PCP Family Medicine; Visit Provider Internal Medicine
DX: E04.1 Nontoxic single thyroid nodule (principal); E03.9 Hypothyroidism, unspecified; E21.3 Hyperparathyroidism, unspecified
CPT/HCPCS: 76536

== ENCOUNTER → 2022-08-16 16:03 | Outpatient (BNVA) | payer OTHER, SELFPAY | PROVIDERS: PCP Family Medicine; Visit Provider Family Medicine | DX: I10 Essential (primary) hypertension (principal); K21.9 Gastro-esophageal reflux disease without esophagitis; R74.8 Abnormal levels of other serum enzymes; E03.9 Hypothyroidism, unspecified; E04.1 Nontoxic single thyroid nodule; E21.3 Hyperparathyroidism, unspecified | CPT/HCPCS: 80053; 82310; 82550; 82552; 83970; 84439; 84443; 85025; 85651; 86140 ==

== ENCOUNTER 2022-10-18 09:39 | Outpatient (CLI) | payer OTHER, SELFPAY ==
--- NOTE | 2022-10-18 09:59 | MM_ITS ---
WS: [id number] DIAGNOSTIC BILATERAL DIGITAL BREAST TOMOSYNTHESIS MAMMOGRAPHY WITH CAD HISTORY: HX OF BREAST CA COMPARISON: 04/20/2022, 01/19/2021, 03/27/2020 TECHNIQUE: Bilateral craniocaudad, mediolateral oblique, and mediolateral views are submitted with to mosynthesis and SM. Spot LEFT CC. Computer aided detection utilized. Breast composition: There are scattered areas of fibroglandular density. Bilateral breast nodules are unchanged. RIGHT breast nodule measuring approximately 4 mm just posterior to the nipple at 6:00 is stable. The LEFT breast nodule towards 8:00 is less well identified today and may be smaller in size. Additional biopsy clip in the central LEFT breast is stable. No adverse change. MM/[place] [id number] IMPRESSION: BI-RADS: 3-Probably Benign FOLLOW UP: 1 Year Follow-up Recommend diagnostic follow-up in one year. Ultrasound or additional spot compr ession imaging may be necessary at that time.
== END 2022-10-18 09:40 | disposition home or self-care (01) ==
PROVIDERS: PCP Family Medicine; Visit Provider Family Medicine
DX: Z85.3 Personal history of malignant neoplasm of breast (principal)
CPT/HCPCS: 77062; G0279

== ENCOUNTER 2023-01-08 17:52 | Inpatient (IN) | payer BC, SELFPAY ==
[2023-01-08] VITALS (7 sets, daily range): BP systolic 112–192; BP diastolic 63–95; PULSE 74–80; RESP 16–18; TEMP 36.6–36.7; O2SAT 95–98
--- NOTE | 2023-01-08 18:22 | CTR_ITS ---
PROCEDURE INFORMATION: Exam: CT Abdomen And Pelvis With Contrast Exam date and time: 01/08/2023 7:20 PM Age: 58 years old Clinical indication: Other: Gi bleeding; Abdominal pain; Generalized; Prior surgery; Surgery date: 6+ months; Surgery type: Appy, tubal; Additional info: Abd pain, gi bleeding TECHNIQUE: Imaging protocol: Computed tomography of the abdomen and pelvis with contrast. Radiation optimization: All CT scans at this facility use at least one of these dose optimization techniques: automated exposure control; mA and/or kV adjustment per patient size (includes targeted exams where dose is matched to clinical indication); or iterative reconstruction. Contrast material: OMNI 350; Contrast volume: 100 ml; Contrast route: INTRAVENOUS (IV); REPORTING DATA: Count of CT and Cardiac NM exams in prior 12 months: This patient has received 0 known CTs and 0 known cardiac nuclear medicine studies in the 12 months prior to the current study. COMPARISON: CR XR chest 1V portable [id number] 11/01/2020 12:55 PM RADIATION DOSE METRICS: Total DLP (mGy-cm): 854.67 FINDINGS: Liver: Normal. No mass. Gallbladder and bile ducts: Normal. No calcified stones. No ductal dilation. Pancreas: Normal. No ductal dilation. Spleen: Normal. No splenomegaly. Adrenal glands: Normal. No mass. Kidneys and ureters: Normal. No hydronephrosis. Stomach and bowel: There is mucosal thickening of the distal transverse colon and descending colon with associated mesenteric inflammatory stranding. No active bleeding is seen. Appendix: There has been an appendectomy. Intraperitoneal space: See Stomach and bowel finding. Vasculature: Unremarkable. No abdominal aortic aneurysm. Lymph nodes: Unremarkable. No enlarged lymph nodes. Urinary bladder: Unremarkable as visualized. Reproductive: Unremarkable as visualized. Bones/joints: Unremarkable. No acute fracture. Soft tissues: Unremarkable. CT/CT abdomen pelvis w con* [id number] IMPRESSION: There is mucosal thickening of the distal transverse colon and descending colon consistent with a nonspecific colitis. No active bleeding is seen.
[2023-01-08 18:52] LABS: Basophils # 0.1 10^3/uL (0.0-0.1); Basophils % 0.5 %; Eosinophils # 0.2 10^3/uL (0.0-0.8); Eosinophils % 1.4 %; Hematocrit 43.2 % (37.0-47.0); Hemoglobin 14.7 g/dL (11.5-15.3); Lymphocytes # 2.8 10^3/uL (0.8-4.8); Mean Corpuscular Hemoglobin 30.6 pg (28.0-34.0); Mean Corpuscular Volume 89.8 fl (81-99); Mean Platelet Volume 8.8 fL (7.4-10.4); Monocytes % 5.4 %; Neutrophils # 13.43 10^3/uL (1.8-7.7); Neutrophils % 76.5 %; Nucleated Red Blood Cells % 0 %; Platelet Count 252 10^3/cmm (130-400); Red Blood Count 4.81 10^6/uL (4.1-5.3); Red Cell Distribution Width 12.1 % (12.1-15.1); White Blood Count 17.6 10^3/uL (4.0-10.0)
[2023-01-08] MEDS: ondansetron 2 mg/ML SDV 2 mL 4 MG IVP (18:57)
[2023-01-08] MEDS: sodium chloride 0.9% 1,000 ML 999 ML IV (18:57)
[2023-01-08] MEDS: morphine 4 mg/mL SDV 1 mL IVP (18:59)
[2023-01-08 19:01] LABS: Add Urine Microscopic? NO; Charge for UA Resulting for Rev
[2023-01-08 19:08] LABS: Alanine Aminotransferase 50 U/L (0-33); Albumin Level 4.5 g/dL (3.5-5.2); Alkaline Phosphatase 78 U/L (35-105); Aspartate Amino Transferase 30 U/L (0-32); Blood Urea Nitrogen 14 mg/dL (8-23); C Reactive Protein 4.8 mg/L (0.0-4.9); Calcium 10.1 mg/dL (8.5-10.5); Carbon Dioxide 22 mmol/L (22-29); Chloride 98 mmol/L (98-107); Creatinine Clr Calc Pharmacy 109.6972; Globulin 2.6 g/dL (1.3-4.6); Glucose 120 mg/dL (65-115); Lipase 20 U/L (13-60); Osmolality Calculated 278 mOsm/kg (285-295); Sodium 133 mmol/L (136-145); Total Bilirubin 0.5 mg/dL (0.15-1.2); Total Protein 7.1 g/dL (6.6-8.7)
--- NOTE | 2023-01-08 19:15 | ED_ITS ---
HPI - Abdominal Pain General: Chief Complaint: Abdominal Pain Stated Complaint: Blood in stool Time Seen by Provider: 01/08/23 18:17 History of Present Illness: 58-year-old female complaining of lower abdominal pain and bright red blood per rectum starting today around 11 AM. No fever. No vomiting. She notes that her belly hurts significantly bad. She has not had pain like this before or history of GI bleeding. No sick contacts, no one with similar symptoms at home. She has a history of appendectomy and tubal ligation. MD elicited complaint: abdominal pain Pertinent past history: none Onset (ago): hour(s) Pain Consistency: constant Location: RLQ and LLQ Severity: moderate Quality: stabbing and aching Radiation: none Migration to: no migration Exacerbating factors: movement Relieving factors: nothing Associated Symptoms: Reports change in stool character, diarrhea and hematochezia; Denies constipation, fever(s), hematuria, hematemesis and melena Review of Systems Const: Denies: fever(s) ENMT: Denies: throat pain Card: Denies: chest pain Resp: Denies: dyspnea, productive cough or non-productive cough GI: Reports: diarrhea, change in stool character and hematochezia; Denies: hematemesis, constipation or melena : Denies: flank pain or hematuria Musc: Denies: back pain PFSH ED PFSH: Medical History Allergic rhinitis due to allergen Essential hypertension History of 2019 novel coronavirus disease (COVID-19) Hot flashes due to menopause Hypothyroidism Mass of soft tissue of lower extremity Plantar fasciitis, bilateral Sleep apnea URI with cough and congestion Varicose veins of left lower extremity Surgical History H/O carpal tunnel repair H/O colonoscopy 7 yrs ago H/O excision of mass left lower leg. DOS:10/26/19 H/O tubal ligation History of appendectomy History of foot surgery Family History Denies family history of Diabetes CAD (coronary artery disease) Clotting disorder Dementia Hyperlipidemia Psychiatric illness Chronic kidney disease (CKD) Suicide Anesthesia complication Bleeding disorder Family history of premature coronary artery disease Lung disease Cancer Hypertension Stroke Social History Smoking and tobacco status: former smoker Alcohol intake: never Household members: spouse Marital status: Current occupational status: employed Physical Exam Const: GENERAL APPEARANCE: cooperative and ill appearing (Mildly); not frail appearing HENMT: COMMON NORMALS: normocephalic, atraumatic and Normal external nose present HEAD & SCALP: normocephalic and atraumatic FACE & SINUS: normal facial exam and face symmetric NOSE: Normal external nose present Eye: COMMON NORMALS: Equal, round and reactive pupils present and EOMs intact bilaterally PUPIL: Yes Equal, round and reactive pupils present Neck/C-Spine: GENERAL: Yes trachea midline Chest: CHEST: Yes Symmetrical chest wall rise Resp: COMMON NORMALS: normal respiratory effort, No retractions, No use of accessory muscles and clear to auscultation bilaterally AUSCULTATION: clear to auscultation bilaterally Cardio: COMMON NORMALS: regular rate and regular rhythm RATE: regular rate RHYTHM: regular rhythm GI: COMMON NORMALS: Normal to inspection, nondistended, normoactive bowel sounds present PALPATION: Yes Tenderness to palpation present (GI) and Yes Guarding due to palpation present (GI) (Positive bed shake tenderness) Extremity: COMMON NORMALS: no pedal edema Neuro: ALEKSANDR COMA SCALE: document GCS findings [place] coma scale eye opening: Spontaneous Aleksandr coma scale verbal response: Orientated Aleksandr coma scale motor response: Obey commands Aleksandr coma scale total score: 15 SENSORY EXAM: Yes extremities (intact) Psych: COMMON NORMALS: speech normal SPEECH: Yes normal speech Skin: COMMON NORMALS: no rashes or lesions noted GENERAL SKIN EXAM: no rashes or lesions noted Course Vital Signs: Vital signs: Vital Signs Temperature 98.1 F 01/09/23 01:02 Pulse Rate 75 01/09/23 01:02 Respiratory Rate 18 01/09/23 01:02 Blood Pressure 113/66 01/09/23 01:02 Pulse Oximetry 95 01/09/23 01:02 Oxygen Delivery Me thod 01/08/23 21:58 MDM - Abdominal Pain Medical Decision Making 58-year-old female with a white blood cell count of 17.6. CT shows distal transverse colon and descending colitis without active bleeding. Hemoglobin is 14.7. Laboratories otherwise not terribly remarkable. The patient has had 8 mg of morphine and is still in a significant amount of discomfort. She has gotten ciprofloxacin and Flagyl as well as 1 L of fluid. Her lactate is normal at 1. She will be admitted for significant colitis. Hospitalist is aware. Lab Data 01/08/23 18:40 01/08/23 18:40 Labs/Radiology: Radiology Impressions Abdomen/Pelvis CT 01/08/23 18:22 IMPRESSION: There is mucosal thickening of the distal transverse colon and descending colon consistent with a nonspecific colitis. No active bleeding is seen. Laboratory Results WBC 17.6 10^3/uL (4.0-10.0) H 01/08/23 18:40 RBC 4.81 10^6/uL (4.1-5.3) 01/08/23 18:40 Hgb 14.7 g/dL (11.5-15.3) 01/08/23 18:40 Hct 43.2 % (37.0-47.0) 01/08/23 18:40 MCV 89.8 fl (81-99) 01/08/23 18:40 MCH 30.6 pg (28.0-34.0) 01/08/23 18:40 MCHC 34.0 g/dL (30.0-36.0) 01/08/23 18:40 RDW 12.1 % (12.1-15.1) 01/08/23 18:40 Plt Count 252 10^3/cmm (130-400) 01/08/23 18:40 MPV 8.8 fL (7.4-10.4) 01/08/23 18:40 Neut % (Auto) 76.5 % 01/08/23 18:40 Lymph % (Auto) 16.0 % 01/08/23 18:40 [place] % (Auto) 5.4 % 01/08/23 18:40 Eos % (Auto) 1.4 % 01/08/23 18:40 Baso % (Auto) 0.5 % 01/08/23 18:40 Neut # (Auto) 13.43 10^3/uL (1.8-7.7) H 01/08/23 18:40 Lymph # (Auto) 2.8 10^3/uL (0.8-4.8) 01/08/23 18:40 [place] # (Auto) 1.0 10^3/uL (0.2-0.9) H 01/08/23 18:40 Eos # (Auto) 0.2 10^3/uL (0.0-0.8) 01/08/23 18:40 Baso # (Auto) 0.1 10^3/uL (0.0-0.1) 01/08/23 18:40 Nucleated RBC % (auto) 0 % 01/08/23 18:40 Nucleated RBCs # 0.0 /100WBC 01/08/23 18:40 Sodium 133 mmol/L (136-145) L 01/08/23 18:40 Potassium 4.0 mmol/L (3.5-5.1) 01/08/23 18:40 Chloride 98 mmol/L (98-107) 01/08/23 18:40 Carbon Dioxide 22 mmol/L (22-29) 01/08/23 18:40 Anion Gap 17.0 (5-19) 01/08/23 18:40 BUN 14 mg/dL (8-23) 01/08/23 18:40 Creatinine 0.6 mg/dL (0.5-0.9) 01/08/23 18:40 GFR Calculation 102.0 mL/min (90-130) 01/08/23 18:40 Glucose 120 mg/dL (65-115) H 01/08/23 18:40 Calculated Osmolality 278 mOsm/kg (285-295) L 01/08/23 18:40 Lactate 1.0 mmol/L (0.5-2.2) 01/08/23 18:40 Calcium 10.1 mg/dL (8.5-10.5) 01/08/23 18:40 Iron 47 ug/dL (37-145) 01/08/23 18:40 TIBC 283 mcg/dl 01/08/23 18:40 % Saturation 16.6 % (20-50) L 01/08/23 18:40 Unsat Iron Binding 236 ug/dL (112-347) 01/08/23 18:40 Total Bilirubin 0.5 mg/dL (0.15-1.2) 01/08/23 18:40 AST 30 U/L (0-32) 01/08/23 18:40 ALT 50 U/L (0-33) H 01/08/23 18:40 Alkaline Phosphatase 78 U/L (35-105) 01/08/23 18:40 C-Reactive Protein 4.8 mg/L (0.0-4.9) 01/08/23 18:40 Total Protein 7.1 g/dL (6.6-8.7) 01/08/23 18:40 Albumin 4.5 g/dL (3.5-5.2) 01/08/23 18:40 Globulin 2.6 g/dL (1.3-4.6) 01/08/23 18:40 Lipase 20 U/L (13-60) 01/08/23 18:40 Vitamin B12 1771 pg/mL (232-1245) H 01/08/23 18:40 Folate 18.1 ng/mL (4.8-37.3) 01/08/23 18:40 Procalcitonin 0.08 ng/mL (0-0.5) 01/08/23 18:40 TSH 1.64 uIU/mL (0.27-4.20) 01/08/23 20:50 Urine Color Yellow (Yellow) 01/08/23 18:53 Urine Appearance Clear (CLEAR) 01/08/23 18:53 Urine pH 6.5 (5-7) 01/08/23 18:53 Ur Specific [place] 1.010 (1.005-1.030) 01/08/23 18:53 Urine Protein Neg (Negative) 01/08/23 18:53 Urine Glucose (UA) Norm (Normal) 01/08/23 18:53 Urine Ketones Negative (Negative) 01/08/23 18:53 Urine Blood Neg (Negative) 01/08/23 18:53 Urine Nitrate Negative (Negative) 01/08/23 18:53 Urine Bilirubin Neg (Negative) 01/08/23 18:53 Urine Urobilinogen Neg mg/dL (Negative) 01/08/23 18:53 Ur Leukocyte Esterase Negative (Negative) 01/08/23 18:53 Discharge Plan Discharge Patient Disposition: Admitted As Inpatient Admit Provider: Houston Johns Clinical Impression: Colitis Condition: Stable Coding Level of Care Code ED Meteorology Professor for Federico Shabazz
[2023-01-08 19:17] LABS: Urine Appearance Clear (CLEAR); Urine Color Yellow (Yellow)
[2023-01-08 19:18] LABS: Bilirubin Urine Neg (Negative); Blood Urine Neg (Negative); Glucose Urine UA Norm (Normal); Ketones Urine Negative (Negative); Leukocyte Esterase Urine Negative (Negative); Nitrate Urine Negative (Negative); Protein Urine Neg (Negative); Urobilinogen Urine Neg (Negative); pH Urine 6.5 (5-7)
[2023-01-08] MEDS: iohexol 350 mg/mL 500 mL Btl (per mL) IV (19:21)
[2023-01-08] MEDS: metroNIDAZOLE IV 500 MG/100 ML PREMIX 100 MG IV (20:18)
--- NOTE | 2023-01-08 20:33 | P.HP_ITS ---
Providers/Chief Complaint Primary Care Provider: Dedra Vega DO Chief Complaint: Blood in stool History of Present Illness Tamara Plascencia is a 58 year old female with past medical history of hypertension, hypothyroidism presented to the hospital today because of multiple episodes of soft bowel movements with bright blood per rectum along with left lower quadrant abdominal pain that started today morning. Patient denies any past history of colitis or bleeding per rectum. Last colonoscopy around 10 years ago which was reported normal. No history of gastric cancer in family. Denies any use of NSAIDs Blood work showed a white count of 17.6, hemoglobin of 14, sodium 133, creatinine 0.6, UA negative for UTI with CT abdomen pelvis as below. Review of Systems General: Reports: 10 or more systems reviewed and unremarkable except in HPI and below Const: Denies: fever(s), chills, body aches, change in appetite, change in weight, malaise, night sweats, diaphoresis, change in sleep pattern, daytime sleepiness or snoring Eyes: Denies: change in vision, blurry vision, photophobia, eye discomfort or eye discharge ENMT: Denies: throat pain, enlarged tonsils, hoarseness, mouth pain, oral sores, dry mouth, tinnitus, nasal congestion or post nasal drip Card: Denies: chest pain, palpitations, irregular heart rhythm, edema, swell ing of feet/ankles, lightheadedness, syncope, pre-syncope, dyspnea on exertion, orthopnea, leg pain with exertion or acrocyanosis Resp: Denies: dyspnea, productive cough, non-productive cough, wheezing, stridor, pain on inspiration, change in phlegm color, hemoptysis or chest congestion GI: Denies: abdominal pain, nausea, vomiting, hematemesis, coffee ground emesis, dysphagia, heartburn, diarrhea, constipation, bloating, GI cramping, ch sharif in bowel habits, pain on defecation, hematochezia or melena : Denies: flank pain, dysuria, urinary frequency, urinary urgency, urinary hesitancy, nocturia or hematuria Musc: Denies: neck pain, back pain, extremity pain, joint pain, joint swelling, joint redness, joint stiffness or limited range of motion Neuro: Denies: headache(s), numbness in extremities, weakness in extremities, sensory changes, lack of coordination, difficulty walking, frequent falls, dizziness, vertigo, confusion, Slurred speech present, difficulty communicating thoughts or seizure-like activity Psych: Denies: anxiety, depression, mood swings, panic attacks, hopelessness or irritability Endo: Denies: polyuria, polydipsia, tired all the time, cold intolerance, exc essive sweating, flushing or heat intolerance Cyrus/Lymph: Denies: easy bruising or easy bleeding All/Imm: Denies: tongue swelling, facial swelling or acute wheezing Medications/Allergies Home Medications Medication Instructions Recorded Confirmed Last Taken Type CPAP #1 ea 11/16/19 12/30/22 Unknown Rx cholecalciferol (vitamin D3) 1,250 1,000 mcg PO ONCE 12/30/20 01/08/23 01/08/23 History mcg (50,000 unit) capsule magnesium 250 mg tablet 500 mg PO DAILY 12/30/20 01/08/23 3 Days Ago History ~01/05/23 lisinopril 20 mg tablet 20 mg PO DAILY #90 tabs 08/16/22 01/08/23 01/08/23 Rx pantoprazole 40 mg tablet,delayed 40 mg PO DAILY@09 #90 tabs 08/16/22 01/08/23 01/08/23 Rx release levothyroxine 125 mcg tablet See Rx Instructions .Route 09/23/22 01/08/23 01/08/23 Rx .COMPLEX #90 tabs azelastine 137 mcg (0.1 %) nasal 2 spray intranasal BID PRN nasal 01/08/23 01/08/23 Unknown Rx spray aerosol congestion #30 mL cetirizine 10 mg tablet (Zyrtec) 10 mg PO DAILY 01/08/23 01/08/23 01/08/23 History Allergies Allergy/AdvReac Type Severity Reaction Status Date / Time No Known Allergies Allergy Verified 01/08/23 17:58 PFSH Acute PFSH: Medical History Allergic rhinitis due to allergen Essential hypertension History of 2019 novel coronavirus disease (COVID-19) Hot flashes due to menopause Hypothyroidism Mass of soft tissue of lower extremity Plantar fasciitis, bilateral Sleep apnea URI with cough and congestion Varicose veins of left lower extremity Surgical History H/O carpal tunnel repair H/O colonoscopy 7 yrs ago H/O excision of mass left lower leg. DOS:10/26/19 H/O tubal ligation History of appendectomy History of foot surgery Family History Denies family history of Diabetes CAD (coronary artery disease) Clotting disorder Dementia Hyperlipidemia Psychiatric illness Chronic kidney disease (CKD) Suicide Anesthesia complication Bleeding disorder Family history of premature coronary artery disease Lung disease Cancer Hypertension Stroke Social History Smoking and tobacco status: former smoker Alcohol intake: never Household members: spouse Marital status: Current occupational status: employed Vitals/I&O/Wt Last Vital Signs Temp 97.8 F 01/08/23 17:54 Pulse 76 01/08/23 20:00 Resp 16 01/08/23 20:00 BP 137/83 01/08/23 20:00 Pulse Ox 96 01/08/23 20:00 O2 Del Method 01/08/23 17:54 01/08/23 01/08/23 01/08/23 06:59 14:59 22:59 Intake Total 1000 / 1000 Balance 1000 / 1000 Weight last 48 hrs Weight 85.275 kg Physical Exam Narrative: General: No acute distress, AO x3 HEENT: PERRLA, pupils bilaterally equal and reactive Chest: Normal vesicular breath sounds, no added sounds, equal good air entry bilaterally CVS: S1-S2 regular, no murmurs, no tachycardia, no gallops, no rubs Abdomen: Soft, mild tenderness in left lower quadrant without any rebound or guarding, no organomegaly, bowel sounds present Neuro: No focal deficits, no facial deformity, AO x3, power 5/5 in all limbs Data 01/08/23 18:40 01/08/23 18:40 A&P Assessment and plan (1) Blood in stool: Most likely in setting of acute colitis. Monitor hemoglobin. We will transfuse if hemoglobin falls below 7. (2) Colitis: As seen on CT abdomen pelvis. Check stool studies. For now empirically start on IV Zosyn. Blood cultures sent from ER. Continue to follow. Zofran as needed. Clear liquid diet. Continue with Protonix 40 mg twice daily. (3) Hypothyroidism: Check TSH. Continue with home dose of levothyroxine. Qualifiers: Hypothyroidism type: acquired Qualified Code(s): E03.9 - Hypothyroidism, unspecified (4) Essential hypertension: Goal blood pressure less than 140/90 mmHg. Continue with home dose of lisinopril. (5) GERD (gastroesophageal reflux disease): Qualifiers: Esophagitis presence: esophagitis presence not specified Qualified Code(s): K21.9 - Gastro-esophageal reflux disease without esophagitis Plan Full code. Protonix for PUD prophylaxis SCDs for DVT prophylaxis. Hold off on therapeutic prophylaxis given bright blood per rectum. Clear liquid diet. Attestations Medical Necessity Statement*: Admission for more than 2 midnights for management of colitis leading to bright blood per rectum. and Moderate Time for a total of 60 minutes, includes reviewing past or interval history, examining/interviewing patient, placing orders, counseling patient/family/other support, updating patient/family/other support, discussing plan of care with staff, communicating with other healthcare providers, documenting encounter and coordinating care Diagnoses Blood in stool K92.1 Colitis K52.9 Hypothyroidism E03.9 Hypothyroidism type: acquired Essential hypertension I10 GERD (gastroesophageal reflux disease) K21.9 Esophagitis presence: esophagitis presence not specified
--- NOTE | 2023-01-08 21:08 | PC.NURSE ---
Report called to [facility] requests we wait to bring pt up for a few minutes, they will call when ready
[2023-01-08 21:37] LABS: Thyroid Stimulating Hormone 1.64 uIU/mL (0.27-4.20)
[2023-01-08] MEDS: dextrose 5%-sod chloride 0.45% 1,000 ML 75 ML IV (22:18)
[2023-01-08] MEDS: piperacillin-tazobactam 3.375 GM in sodium chloride 0.9% (plus) 50 ML IV (22:18)
[2023-01-08 22:29] LABS: Iron 47 ug/dL (37-145); Percent Saturation 16.6 % (20-50); Total Iron Binding Capacity 283 mcg/dl; Unsaturated Iron Binding 236 ug/dL (112-347)
[2023-01-08] MEDS: HYDROmorphone 1 mg/mL INJ 1 mL 0.4 MG IVP (22:34)
[2023-01-08 22:44] LABS: Folate Level 18.1 ng/mL (4.8-37.3)
[2023-01-08 22:45] LABS: Procalcitonin 0.08 ng/mL (0-0.5); Vitamin B12 1771 pg/mL (232-1245)
[2023-01-09] VITALS (9 sets, daily range): BP systolic 106–126; BP diastolic 65–79; PULSE 65–79; RESP 16–18; TEMP 36.5–36.8; O2SAT 94–96
[2023-01-09 05:22] LABS: Basophils # 0.1 10^3/uL (0.0-0.1); Basophils % 0.5 %; Eosinophils # 0.3 10^3/uL (0.0-0.8); Hematocrit 39.7 % (37.0-47.0); Hemoglobin 13.4 g/dL (11.5-15.3); Lymphocytes # 3.2 10^3/uL (0.8-4.8); Lymphocytes % 24.7 %; Mean Corpuscular HGB Conc 33.8 g/dL (30.0-36.0); Mean Corpuscular Hemoglobin 30.7 pg (28.0-34.0); Mean Corpuscular Volume 90.8 fl (81-99); Monocytes % 8.1 %; Neutrophils # 8.23 10^3/uL (1.8-7.7); Neutrophils % 64.3 %; Nucleated Red Blood Cells % 0 %; Platelet Count 219 10^3/cmm (130-400); Red Blood Count 4.37 10^6/uL (4.1-5.3); Red Cell Distribution Width 12.3 % (12.1-15.1); White Blood Count 12.8 10^3/uL (4.0-10.0)
[2023-01-09 05:41] LABS: Alanine Aminotransferase 41 U/L (0-33); Albumin Level 3.7 g/dL (3.5-5.2); Alkaline Phosphatase 63 U/L (35-105); Anion Gap 15.4 (5-19); Aspartate Amino Transferase 20 U/L (0-32); Blood Urea Nitrogen 8 mg/dL (8-23); Calcium 9.2 mg/dL (8.5-10.5); Carbon Dioxide 23 mmol/L (22-29); Chloride 105 mmol/L (98-107); Chol HDL Ratio 3.16 mg/dL (0.0-4.40); Cholesterol 183 mg/dL (0-200); Globulin 2.6 g/dL (1.3-4.6); Glomerular Filtration Rate 125.9 mL/min (90-130); Glucose 134 mg/dL (65-115); HDL Cholesterol 58 mg/dL (60-100); LDL Cholesterol Calculated 96 mg/dL (50-129); Magnesium 1.9 mg/dL (1.7-2.3); Osmolality Calculated 288 mOsm/kg (285-295); Potassium 4.4 mmol/L (3.5-5.1); Sodium 139 mmol/L (136-145); Total Bilirubin 0.6 mg/dL (0.15-1.2); Total Protein 6.3 g/dL (6.6-8.7); Triglycerides 145 mg/dL (0-150); VLDL Cholestrol Calculation 29 mg/dL (0-30)
[2023-01-09 06:00] LABS: Estmated Average Glucose 108; Hemoglobin A1C 5.4 % (4.0-6.0)
[2023-01-09] MEDS: piperacillin-tazobactam 3.375 GM in sodium chloride 0.9% (plus) 50 ML IV ×3 (08:29→23:16)
[2023-01-09] MEDS: lisinopril 20 mg Tablet PO (08:30)
[2023-01-09] MEDS: pantoprazole DR 40 mg Tablet PO (08:30)
[2023-01-09] MEDS: acetaminophen 325 mg Tablet 650 MG PO ×2 (08:35→21:22)
[2023-01-09] MEDS: levothyroxine 125 mcg Tablet PO (08:35)
--- NOTE | 2023-01-09 20:46 | PM.PN ---
Subjective Subjective: She is still having some discomfort in her lower abdomen, not as bad as before. So far bleeding appears to have subsided. Vitals/I&O/Wt Last Vital Signs Temp 98.1 F 01/09/23 07:56 Pulse 77 01/09/23 16:00 Resp 18 01/09/23 16:00 BP 110/66 01/09/23 16:00 Pulse Ox 95 01/09/23 16:00 O2 Del Method 01/08/23 21:58 01/09/23 01/09/23 01/09/23 06:59 14:59 22:59 Intake Total 50 / 1150 1650 / 1650 50 / 1700 Balance 50 / 1150 1650 / 1650 50 / 1700 Weight last 48 hrs Weight 86.636 kg Weight 86.727 kg Weight 85.275 kg Physical Exam Const: COMMON NORMALS: patient oriented x3 and alert GENERAL APPEARANCE: cooperative ORIENTATION/CONSCIOUSNESS: Yes awake HENMT: COMMON NORMALS: oropharynx normal Neck/C-Spine: COMMON NORMALS: no JVD Resp: COMMON NORMALS: normal respiratory effort and clear to auscultation bilaterally AUSCULTATION: clear to auscultation bilaterally Cardio: COMMON NORMALS: no JVD, regular rhythm, S1 normal heart sound present, S2 normal heart sound present and No murmurs present (Cardio) RHYTHM: regular rhythm HEART SOUNDS: S1 normal heart sound present and S2 normal heart sound present GI: COMMON NORMALS: Normal to inspection, nondistended, normoactive bowel sounds present, Soft to palpation and non-tender PALPATION: Yes Soft to palpation Extremity: COMMON NORMALS: no joint enlargement and no pedal edema Neuro: COMMON NORMALS: patient oriented x3 and moves all extremities SENSORIUM/ORIENTATION: Yes alert Skin: COMMON NORMALS: no rashes or lesions noted GENERAL SKIN EXAM: no rashes or lesions noted Data 01/09/23 04:35 01/09/23 04:35 Micro: Microbiology 01/09/23 04:49 Stool Lactoferrin - Final Stool Enteric Pathogens (PCR) - Final Parasite Antigen Panel - Final C.difficile Toxin B Gene (PCR) - Final Occult Blood (FIT) - Final 01/08/23 18:53 Bacterial Antigens - Final Urine Kidney 01/08/23 20:50 Blood Culture - Preliminary Blood SPECIMEN COLLECTED 01/08/23 20:50 Blood Culture - Preliminary Blood SPECIMEN COLLECTED A&P Assessment and plan (1) Blood in stool: So far appears to have subsided. She gave a stool sample. Requested follow-up hemoglobin for tonight and for the morning. Most likely in setting of acute colitis. Monitor hemoglobin. We will transfuse if hemoglobin falls below 7. (2) Colitis: Follow-up chemistries. She still having abdominal discomfort. De-escalated diet to n.p.o. for now. Follow-up chemistry requested. Stool studies appreciated, positive lactoferrin, positive Hemoccult. Negative C. difficile, negative enteric bacterial and parasite panel. Symptoms are improving. Continues on Zosyn empirically for now. Consider possibility of inflammatory or ischemic colitis. We will collect CRP, ESR. Obtain EKG. Consider follow-up colonoscopy. CT appreciated. (3) Hypothyroidism: Appreciate TSH 1.64. Continue with home dose of levothyroxine. Qualifiers: Hypothyroidism type: acquired Qualified Code(s): E03.9 - Hypothyroidism, unspecified (4) Essential hypertension: Continue with home dose of lisinopril. (5) GERD (gastroesophageal reflux disease): Qualifiers: Esophagitis presence: esophagitis presence not specified Qualified Code(s): K21.9 - Gastro-esophageal reflux disease without esophagitis Plan Full code. Protonix for PUD prophylaxis SCDs for DVT prophylaxis. Hold off on therapeutic prophylaxis given bright blood per rectum. Attestations Medical Necessity Statement*: Continue admission for assessment management of acute GI bleeding colitis. Diagnoses Blood in stool K92.1 Colitis K52.9 Hypothyroidism E03.9 Hypothyroidism type: acquired Essential hypertension I10 GERD (gastroesophageal reflux disease) K21.9 Esophagitis presence: esophagitis presence not specified
--- NOTE | 2023-01-09 20:49 | ECG_ITS ---
[facility] Test Date: 2023-01-09 Pat Name: Tamara Plascencia Department: Room: 258 Gender: Female Sql Report Analyst: : 1965 Requested By: Hayder Santiago Order Number: [id number] Etienne MD: Dane Velasquez M.D. Measurements Intervals [place] Rate: 72 P: 53 [place]: 150 QRS: 42 QRSD: 136 T: 9 QT: 405 QTc: 444 Interpretive Statements SINUS RHYTHM RIGHT BUNDLE BRANCH BLOCK [120+ ms QRS DURATION, UPRIGHT V1, 40+ ms S IN I/aVL/V4/V5/V6] Compared to ECG 11/01/2020 13:15:07 Right bundle-branch block now present Electronically Signed On 01-10-2023 11:22:02 APPLIED MARINE PHYSICS PROFESSOR by Dane Velasquez M.D. [id number]
[2023-01-09 21:28] LABS: Hemoglobin 14.4 g/dL (11.5-15.3)
[2023-01-09 21:38] LABS: Erythrocyte Sedimentation Rate 18 mm/hr (0-15)
[2023-01-09 21:58] LABS: C Reactive Protein 41.9 mg/L (0.0-4.9)
[2023-01-10] MEDS: levothyroxine 125 mcg Tablet PO (03:15)
[2023-01-10 04:00] VITALS: BP 116/75; PULSE 68; RESP 17; TEMP 36.5; O2SAT 95
[2023-01-10] MEDS: piperacillin-tazobactam 3.375 GM in sodium chloride 0.9% (plus) 50 ML IV (05:49)
[2023-01-10 06:00] VITALS: PULSE 66
[2023-01-10 06:05] LABS: Basophils # 0.1 10^3/uL (0.0-0.1); Basophils % 0.8 %; Eosinophils # 0.3 10^3/uL (0.0-0.8); Eosinophils % 2.7 %; Hematocrit 40.4 % (37.0-47.0); Hemoglobin 13.2 g/dL (11.5-15.3); Lymphocytes # 3.1 10^3/uL (0.8-4.8); Lymphocytes % 27.2 %; Mean Corpuscular HGB Conc 32.7 g/dL (30.0-36.0); Mean Corpuscular Hemoglobin 30.6 pg (28.0-34.0); Mean Corpuscular Volume 93.7 fl (81-99); Mean Platelet Volume 9.3 fL (7.4-10.4); Monocytes # 0.8 10^3/uL (0.2-0.9); Monocytes % 7.4 %; Neutrophils # 6.95 10^3/uL (1.8-7.7); Neutrophils % 61.5 %; Nucleated Red Blood Cells % 0 %; Platelet Count 193 10^3/cmm (130-400); Red Blood Count 4.31 10^6/uL (4.1-5.3); Red Cell Distribution Width 12.6 % (12.1-15.1); White Blood Count 11.3 10^3/uL (4.0-10.0)
[2023-01-10 06:10] LABS: Erythrocyte Sedimentation Rate 16 mm/hr (0-15)
[2023-01-10 06:16] LABS: Alanine Aminotransferase 34 U/L (0-33); Albumin Level 3.6 g/dL (3.5-5.2); Alkaline Phosphatase 61 U/L (35-105); Anion Gap 15.1 (5-19); Aspartate Amino Transferase 18 U/L (0-32); Blood Urea Nitrogen 9 mg/dL (8-23); C Reactive Protein 37.6 mg/L (0.0-4.9); Calcium 9.5 mg/dL (8.5-10.5); Carbon Dioxide 24 mmol/L (22-29); Chloride 103 mmol/L (98-107); Globulin 2.7 g/dL (1.3-4.6); Glomerular Filtration Rate 125.9 mL/min (90-130); Glucose 107 mg/dL (65-115); Osmolality Calculated 285 mOsm/kg (285-295); Potassium 4.1 mmol/L (3.5-5.1); Sodium 138 mmol/L (136-145); Total Bilirubin 0.7 mg/dL (0.15-1.2); Total Protein 6.3 g/dL (6.6-8.7)
[2023-01-10 07:50] VITALS: BP 107/70; PULSE 69; RESP 18; TEMP 36.4; O2SAT 91
[2023-01-10] MEDS: docusate sodium 100 mg Capsule PO (08:22)
[2023-01-10] MEDS: lisinopril 20 mg Tablet PO (08:22)
[2023-01-10] MEDS: pantoprazole DR 40 mg Tablet PO (08:22)
[2023-01-10 12:00] VITALS: BP 121/73; PULSE 78; RESP 18; TEMP 36.6; O2SAT 96
--- NOTE | 2023-01-10 12:41 | P.DS_ITS ---
Discharge Providers Date of Admission: 01/08/23 20:59 Date of Discharge: January 10, 2023 Attending Provider at Admission: Houston Johns MD Attending Provider at Discharge: Ayden Stephenson MD Primary Care Provider: Dedra Vega DO Diagnoses at Discharge Discharge Diagnosis (1) Blood in stool: Status: Acute (2) Colitis: Status: Acute (3) Hypothyroidism: Status: Chronic Qualifiers: Hypothyroidism type: acquired Qualified Code(s): E03.9 - Hypothyroidism, unspecified (4) Essential hypertension: Status: Chronic (5) GERD (gastroesophageal reflux disease): Status: Acute Qualifiers: Esophagitis presence: esophagitis presence not specified Qualified Code(s): K21.9 - Gastro-esophageal reflux disease without esophagitis Reason for Visit Reason for Visit: Blood in stool Hospital Course Hospital Course bart Plascencia is a 58 year old female with past medical history of hypertension, hypothyroidism presented to the hospital today because of multiple episodes of soft bowel movements with bright blood per rectum along with left lower quadrant abdominal pain that started today morning.? Patient denies any past history of colitis or bleeding per rectum.? Last colonoscopy around 10 years ago which was reported normal.? No history of gastric cancer in family.? Denies any use of NSAIDs Patient was admitted to [facility] for acute colitis, blood in stool, received IV fluids, empiric antibiotic therapy, clinically monitored, hemoglobin stable at 13.2, no hemodynamic compromise, stool studies positive for blood, patient overall clinical improved, no recurrent bloody or black stools, abdominal pain resolved, no nausea, no vomiting, tolerating clear liquid diet well. Patient was advised to slowly advance diet at home, discharged with p.o. antibiotic therapy, follow-up with general surgery as outpatient for consideration of colonoscopy. Physical Exam Const: COMMON NORMALS: no acute distress and patient oriented x3 Resp: COMMON NORMALS: normal respiratory effort, No retractions, No use of accessory muscles and clear to auscultation bilaterally AUSCULTATION: clear to auscultation bilaterally Cardio: COMMON NORMALS: regular rate, regular rhythm, S1 normal heart sound present and S2 normal heart sound present RATE: regular rate RHYTHM: regular rhythm HEART SOUNDS: S1 normal heart sound present and S2 normal heart sound present GI: COMMON NORMALS: Normal to inspection, nondistended, normoactive bowel sounds present and non-tender Extremity: COMMON NORMALS: no clubbing, cyanosis or edema, no calf tenderness and no pedal edema Neuro: COMMON NORMALS: patient oriented x3 Psych: COMMON NORMALS: mental status grossly normal Discharge Data Studies Completed and Pending Completed Studies During Hospitalization Category Date Time Status CT abdomen pelvis w con* [id number] Stat Cat Scan 01/08/23 18:22 Completed Pending at discharge Category Date Time Status Blood Culture Stat Lab 01/08/23 20:50 Results Complete Blood Count w/Auto AM LABS Lab 01/11/23 04:00 Ordered Complete Blood Count w/Auto AM LABS Lab 01/12/23 04:00 Ordered Comprehensive Metabolic Panel AM LABS Lab 01/11/23 04:00 Ordered Comprehensive Metabolic Panel AM LABS Lab 01/12/23 04:00 Ordered Radiology Impressions Abdomen/Pelvis CT 01/08/23 18:22 IMPRESSION: There is mucosal thickening of the distal transverse colon and descending colon consistent with a nonspecific colitis. No active bleeding is seen. Laboratory Results WBC 11.3 10^3/uL (4.0-10.0) H 01/10/23 05:23 RBC 4.31 10^6/uL (4.1-5.3) 01/10/23 05:23 Hgb 13.2 g/dL (11.5-15.3) 01/10/23 05:23 Hct 40.4 % (37.0-47.0) 01/10/23 05:23 MCV 93.7 fl (81-99) 01/10/23 05:23 MCH 30.6 pg (28.0-34.0) 01/10/23 05:23 MCHC 32.7 g/dL (30.0-36.0) 01/10/23 05:23 RDW 12.6 % (12.1-15.1) 01/10/23 05:23 Plt Count 193 10^3/cmm (130-400) 01/10/23 05:23 MPV 9.3 fL (7.4-10.4) 01/10/23 05:23 Neut % (Auto) 61.5 % 01/10/23 05:23 Lymph % (Auto) 27.2 % 01/10/23 05:23 [place] % (Auto) 7.4 % 01/10/23 05:23 Eos % (Auto) 2.7 % 01/10/23 05:23 Baso % (Auto) 0.8 % 01/10/23 05:23 Neut # (Auto) 6.95 10^3/uL (1.8-7.7) 01/10/23 05:23 Lymph # (Auto) 3.1 10^3/uL (0.8-4.8) 01/10/23 05:23 [place] # (Auto) 0.8 10^3/uL (0.2-0.9) 01/10/23 05:23 Eos # (Auto) 0.3 10^3/uL (0.0-0.8) 01/10/23 05:23 Baso # (Auto) 0.1 10^3/uL (0.0-0.1) 01/10/23 05: Nucleated RBC % (auto) 0 % 01/10/23 05: Nucleated RBCs # 0.0 /100WBC 01/10/23 05:23 ESR 16 mm/hr (0-15) H 01/10/23 05:23 Sodium 138 mmol/L (136-145) 01/10/23 05:23 Potassium 4.1 mmol/L (3.5-5.1) 01/10/23 05:23 Chloride 103 mmol/L (98-107) 01/10/23 05:23 Carbon Dioxide 24 mmol/L (22-29) 01/10/23 05:23 Anion Gap 15.1 (5-19) 01/10/23 05:23 BUN 9 mg/dL (8-23) 01/10/23 05:23 Creatinine 0.5 mg/dL (0.5-0.9) 01/10/23 05:23 GFR Calculation 125.9 mL/min (90-130) 01/10/23 05:23 Glucose 107 mg/dL (65-115) 01/10/23 05:23 Estimat Average Glucose 108 01/09/23 04:35 Hemoglobin A1c 5.4 % (4.0-6.0) 01/09/23 04:35 Calculated Osmolality 285 mOsm/kg (285-295) 01/10/23 05:23 Lactate 1.0 mmol/L (0.5-2.2) 01/08/23 18:40 Calcium 9.5 mg/dL (8.5-10.5) 01/10/23 05: Magnesium 1.9 mg/dL (1.7-2.3) 01/09/23 04:35 Iron 47 ug/dL (37-145) 01/08/23 18:40 TIBC 283 mcg/dl 01/08/23 18:40 % Saturation 16.6 % (20-50) L 01/08/23 18:40 Unsat Iron Binding 236 ug/dL (112-347) 01/08/23 18:40 Total Bilirubin 0.7 mg/dL (0.15-1.2) 01/10/23 05:23 AST 18 U/L (0-32) 01/10/23 05: ALT 34 U/L (0-33) H 01/10/23 05: Alkaline Phosphatase 61 U/L (35-105) 01/10/23 05:23 C-Reactive Protein 37.6 mg/L (0.0-4.9) H 01/10/23 05: Total Protein 6.3 g/dL (6.6-8.7) L 01/10/23 05:23 Albumin 3.6 g/dL (3.5-5.2) 01/10/23 05:23 Globulin 2.7 g/dL (1.3-4.6) 01/10/23 05:23 Triglycerides 145 mg/dL (0-150) 01/09/23 04:35 Cholesterol 183 mg/dL (0-200) 01/09/23 04:35 LDL Cholesterol, Calc 96 mg/dL (50-129) 01/09/23 04:35 Total VLDL Cholesterol 29 mg/dL (0-30) 01/09/23 04:35 HDL Cholesterol 58 mg/dL (60-100) L 01/09/23 04:35 Cholesterol/HDL Ratio 3.16 mg/dL (0.0-4.40) 01/09/23 04:35 Lipase 20 U/L (13-60) 01/08/23 18:40 Vitamin B12 1771 pg/mL (232-1245) H 01/08/23 18:40 Folate 18.1 ng/mL (4.8-37.3) 01/08/23 18:40 Procalcitonin 0.08 ng/mL (0-0.5) 01/08/23 18:40 TSH 1.64 uIU/mL (0.27-4.20) 01/08/23 20:50 Urine Color Yellow (Yellow) 01/08/23 18:53 Urine Appearance Clear (CLEAR) 01/08/23 18:53 Urine pH 6.5 (5-7) 01/08/23 18:53 Ur Specific [place] 1.010 (1.005-1.030) 01/08/23 18:53 Urine Protein Neg (Negative) 01/08/23 18:53 Urine Glucose (UA) Norm (Normal) 01/08/23 18:53 Urine Ketones Negative (Negative) 01/08/23 18:53 Urine Blood Neg (Negative) 01/08/23 18:53 Urine Nitrate Negative (Negative) 01/08/23 18:53 Urine Bilirubin Neg (Negative) 01/08/23 18:53 Urine Urobilinogen Neg mg/dL (Negative) 01/08/23 18:53 Ur Leukocyte Esterase Negative (Negative) 01/08/23 18:53 Vitals Last Vital Signs Temp 97.5 F L 01/10/23 07:50 Pulse 69 01/10/23 07:50 Resp 18 01/10/23 07:50 BP 107/70 01/10/23 07:50 Pulse Ox 91 01/10/23 07:50 O2 Del Method 01/10/23 07:50 Discharge Plan Discharge Patient Disposition: Home Condition: Stable Prescriptions: New ciprofloxacin HCl [Cipro] 500 mg tablet 500 mg PO BID 5 Days Qty: 10 0RF metronidazole 500 mg tablet 500 mg PO Q8H 5 Days Qty: 15 0RF Continued cholecalciferol (vitamin D3) 1,250 mcg (50,000 unit) capsule 1,000 mcg PO ONCE magnesium 250 mg tablet 500 mg PO DAILY levothyroxine 125 mcg tablet See Rx Instructions .ROUTE .COMPLEX Qty: 90 3RF Dose Instruction: TAKE 1 TABLET BY MOUTH EVERY DAY AT 4PM Rx Instructions: TAKE 1 TABLET BY MOUTH EVERY DAY AT 4PM lisinopril 20 mg tablet 20 mg PO DAILY Qty: 90 3RF pantoprazole 40 mg tablet,delayed release (DR/EC) 40 mg PO DAILY@09 Qty: 90 3RF (DME) CPAP Qty: 1 0RF Rx Instructions: AUTO - TITRATING CPAP 6-14CM azelastine 137 mcg (0.1 %) aerosol,spray 2 spray intranasal BID PRN (Reason: nasal congestion) Qty: 30 3RF Label Comments: patient states she has not been able to get this filled yet Rx Instructions: administer into each nostril Zyrtec 10 mg Tablet 10 mg PO DAILY Discharge Orders: Discharge Order (Routine); Ordered 01/10/23 Ordered By: Ayden Stephenson Referrals: Juan Jose Spear DO [Physician] - 02/08/23 8:40 am (CONSULT FOR COLONOSCOPY FEBRUARY 08 AT 8:40) Dedra Vega DO [Primary Care Provider] - 01/17/23 9:00 am Discharge Diet: Advance as tolerated Discharge Activity: Resume usual activity Patient Instructions: Opioid Safety Activity Restrictions/Additional Instructions: - Please slowly advance diet, hydrate well drink plenty of electrolyte balanced fluids -Please take antibiotics as prescribed -If you have any recurrent bloody or black stools go to emergency room -Follow-up with general surgery for consideration of colonoscopy Discharge Attestations Time Spent in Discharge Care*: greater than 30 min Quality Metrics Clinical Quality Measures [ No reported AMI, CVA or VTE this stay] Coding Level of Care Code 86701 Diagnoses Blood in stool K92.1 Colitis K52.9 Hypothyroidism E03.9 Hypothyroidism type: acquired Essential hypertension I10 GERD (gastroesophageal reflux disease) K21.9 Esophagitis presence: esophagitis presence not specified
--- NOTE | 2023-01-10 13:55 | PC.NURSE ---
Patient had another small/loose bright red BM at 1324. D/C orders are in, but per Sachin, patient is to be monitored for another hour until 1424 to see how she feels prior to d/c.
[2023-01-10 15:02] VITALS: BP 121/73; PULSE 78; RESP 18; TEMP 36.6; O2SAT 96
== END 2023-01-10 14:24 | disposition home or self-care (01) | DRG 392 ==
LOC: ER 20:42 → MEDSURG 20:59
PROVIDERS: Internal Medicine; Admitting Provider Student in an Organized Health Care Education/Training Program; Emergency Provider Emergency Medicine; PCP Family Medicine; Visit Provider Family Medicine
DX: K52.9 Noninfective gastroenteritis and colitis, unspecified (principal); I10 Essential (primary) hypertension; E03.9 Hypothyroidism, unspecified; Z86.16 Personal history of COVID-19; G47.30 Sleep apnea, unspecified; Z87.891 Personal history of nicotine dependence
CPT/HCPCS: 36415; 74177; 80053; 80061; 81003; 82274; 82607; 82746; 83036; 83540; 83550; 83605; 83630; 83690; 83735; 84145; 84443; 85018; 85025; 85651; 86140; 86403; 87040; 87493; 87506; 93005; 96365; 96367; 96375; 96376; 99285; J1170; J2270; J2405; J2543; J3490; J7030; J7799; Q9967

== ENCOUNTER 2023-02-23 05:51 | Day surgery (SDC) | payer BC, SELFPAY ==
[2023-02-21 09:18] VITALS: BMI 30.3
[2023-02-23 06:28] VITALS: BP 138/81; PULSE 58; RESP 18; TEMP 36.1; O2SAT 95
[2023-02-23] MEDS: sodium chloride 0.9% 1,000 ML 30 ML IV (06:32)
--- NOTE | 2023-02-23 06:48 | P.ANESASSM_ITS ---
Pre-Anesthetic Assessment Height/Weight: Height 1.68 m Weight 85.275 kg Temp Pulse Resp BP Pulse Ox O2 Del Method 97 F L 58 L 18 138/81 95 Room Air 02/23/23 06:28 02/23/23 06:28 02/23/23 06:28 02/23/23 06:28 02/23/23 06:28 02/23/23 06:28 Preop Diagnosis: history colon ca, ausea vomitting Operation Date: 02/23/23 07:00 Proposed Procedures p 21062 egd 62597 colon K52.9 ,Z80.0(Not Applicable) - Juan Jose Spear DO s Colonoscopy(Not Applicable) - Juan Jose Spear DO Was Beta Trina taken within 24 hours: Yes Was Clonidine taken within 24 hours: N/A Last intake: Intake Last Liquid Date 02/22/23 Last Liquid Time 21:00 Last Solid Date 02/21/23 Last Solid Time 19:00 Social No alcohol and No tobacco Exam alert, oriented x 3, clear to auscultation bilaterally and regular rate & rhythm Airway Submandibular: within normal limits Cervical ROM: within normal limits Mallampati: Class I History/ROS No significant history except as noted and No significant complaints Pulmonary Sleep Apnea CPAP. CV/HEM Hypertension None reported Hepatic None reported GI Gastroesophageal Reflux Disease vomitting. none today. PPI not working. hx colon CA Metabolic Morbid Obesity and Thyroid Disease [facility] None reported Neuropsych None reported Anesthetic Plan ASA status: 3 Anesthesia: Anesthesia Evaluation and MAC Risk of > 500 ml blood loss (7ml/kg in children): Yes, adequate IV access and fluids planned Medications/Allergies Home Medications Medication Instructions Recorded Confirmed Last Taken Type CPAP #1 ea 11/16/19 02/08/23 02/22/23 Rx cholecalciferol (vitamin D3) 1,250 1,000 mcg PO ONCE 12/30/20 02/21/23 02/22/23 History mcg (50,000 unit) capsule magnesium 250 mg tablet 500 mg PO DAILY 12/30/20 02/21/23 02/22/23 History lisinopril 20 mg tablet 20 mg PO DAILY #90 tabs 08/16/22 02/21/23 02/22/23 Rx levothyroxine 125 mcg tablet See Rx Instructions .Route 09/23/22 02/21/23 02/23/23 04:30 Rx .COMPLEX #90 tabs azelastine 137 mcg (0.1 %) nasal 2 spray intranasal BID PRN nasal 01/08/23 02/21/23 02/22/23 Rx spray aerosol congestion #30 mL cetirizine 10 mg tablet (Zyrtec) 10 mg PO DAILY 01/08/23 02/21/23 02/22/23 History pantoprazole 40 mg tablet,delayed 40 mg PO Q12H 6 weeks #84 tabs 02/08/23 02/21/23 02/22/23 Rx release Allergies Allergy/AdvReac Type Severity Reaction Status Date / Time No Known Allergies Allergy Verified 02/08/23 08:39 Current Medications Generic Name Dose Route Start Last Admin Trade Name Freq PRN Reason Stop Dose Admin Sodium Chloride 1,000 mls @ 30 mls/hr 02/23/23 06:15 02/23/23 06:32 Sodium Chloride 0.9% IV 02/24/23 06:14 30 mls/hr .Q24H MICKY Administration PFSH Anesthesia Medical History Allergic rhinitis due to allergen Essential hypertension Family history of colon cancer History of 2019 novel coronavirus disease (COVID-19) Hot flashes due to menopause Hypothyroidism Mass of soft tissue of lower extremity Plantar fasciitis, bilateral Sleep apnea URI with cough and congestion Varicose veins of left lower extremity Surgical History H/O carpal tunnel repair H/O colonoscopy 7 yrs ago H/O excision of mass left lower leg. DOS:10/26/19 H/O tubal ligation History of appendectomy History of foot surgery Family History Brother Cancer colon cancer partial colon removal Father Cancer colon cancer Denies family history of Diabetes CAD (coronary artery disease) Clotting disorder Dementia Hyperlipidemia Psychiatric illness Chronic kidney disease (CKD) Suicide Anesthesia complication Bleeding disorder Family history of premature coronary artery disease Lung disease Hypertension Stroke Social History Smoking and tobacco status: former smoker Alcohol intake: never Household members: spouse Marital status: Current occupational status: employed Data Anesthesia Cardiac Studies: No Data to Display
--- NOTE | 2023-02-23 07:05 | W.PM.OPSUD ---
Surgery/Procedure H&P Update DATE OF PROCEDURE: February 23, 2023 DATE H&P PERFORMED: 02/08/23 H&P UPDATE INFORMATION: I have reviewed H&P completed within last 30 days, I have examined patient prior to procedure and No changes to prior documentation PREOP DIAGNOSIS: history colon ca, ausea vomitting PLANNED PROCEDURE: Operation Date: 02/23/23 07:00 Proposed Procedures p 68388 egd [id number] colon K52.9 ,Z80.0(Not Applicable) - DO matty Briscoe Colonoscopy(Not Applicable) - Juan Jose Spear DO
[2023-02-23 07:45] VITALS: BP 122/74; PULSE 72; RESP 16; TEMP 36.1; O2SAT 96
[2023-02-23 07:50] VITALS: BP 125/80; PULSE 71; RESP 18
[2023-02-23 08:00] VITALS: BP 134/85; PULSE 67; RESP 18; O2SAT 100
--- NOTE | 2023-02-23 08:37 | ANE.PACU2 ---
Inpatient post-anesthesia follow up: Airway intact: Yes Vital signs: Temperature 97.0 F Pulse Rate 67 Respiratory Rate 18 Blood Pressure 134/85 Pulse Oximetry 100 Oxygen Delivery Me thod Room Air Oxygen Flow Rate 95 Fraction of Inspir ed Oxygen Hydration adequate: Yes Nausea and vomiting: No Pain level: 1 Mental status: Baseline
== END 2023-02-23 08:35 | disposition home or self-care (01) ==
PROVIDERS: PCP Family Medicine; Visit Provider Surgery
PROC: 0DJ08ZZ Inspection of Upper Intestinal Tract, Via Natural or Artificial Opening Endoscopic (ICD-10-PCS; CPT 43235; principal; 2023-02-23 07:00)
PROC: 0DJD8ZZ Inspection of Lower Intestinal Tract, Via Natural or Artificial Opening Endoscopic (ICD-10-PCS; CPT 45378; 2023-02-23 07:00)
DX: K92.1 Melena (principal); Z80.0 Family history of malignant neoplasm of digestive organs; K62.1 Rectal polyp; D12.2 Benign neoplasm of ascending colon; K52.9 Noninfective gastroenteritis and colitis, unspecified; G47.30 Sleep apnea, unspecified; I10 Essential (primary) hypertension; K21.9 Gastro-esophageal reflux disease without esophagitis; E66.01 Morbid (severe) obesity due to excess calories; Z68.30 Body mass index [BMI] 30.0-30.9, adult; E03.9 Hypothyroidism, unspecified; Z87.891 Personal history of nicotine dependence; K64.8 Other hemorrhoids
CPT/HCPCS: 43239; 45385; 88305; J2704; J3490; J7030

== ENCOUNTER 2023-03-21 13:17 | Outpatient (CLI) | payer BC, SELFPAY ==
--- NOTE | 2023-03-21 13:00 | US_ITS ---
WS: [id number] RIGHT UPPER QUADRANT ULTRASOUND HISTORY: abdominal pain COMPARISON: None available. Liver: 16.3 cm in length. Coarsened echotexture. No mass. Normal size. No bile duct dilatation. Portal Vein: Normal hepatopetal flow with monophasic waveform. Gallbladder: Normally distended gallbladder with no stones or wall thickening. CBD: 0.4 cm Pancreas: Obscured. Right kidney: 10.7 cm in length. Normal size and echogenicity. No hydronephrosis or mass. Aorta and IVC: Unremarkable abdominal aorta and IVC. No ascites. US/US gall bladder [id number] IMPRESSION: 1. Normal gallbladder. 2. Pancreas not visualized. 3. Mild coarse echotexture of the liver. Consider cirrhosis or early hepatic s teatosis.
== END 2023-03-21 13:18 | disposition home or self-care (01) ==
PROVIDERS: PCP Family Medicine; Visit Provider Surgery
DX: R10.9 Unspecified abdominal pain (principal)
CPT/HCPCS: 76705

== ENCOUNTER 2023-04-18 07:43 | Outpatient (CLI) | payer BC, SELFPAY ==
--- NOTE | 2023-04-18 08:00 | NM_ITS ---
WS: [email or web address] NUCLEAR MEDICINE HIDA SCAN CLINICAL INFORMATION: ABDOMINAL PAIN TECHNIQUE: Following intravenous administration of 7.7 mCi of technetium 99m mebrofenin, images of th e abdomen were obtained over the course of 60 minutes. Next, gallbladder ejection fraction was determ ined by obtaining preprandial and one-hour postprandial images of the gallbladder following oral hawa stion of Ensure. COMPARISON: Ultrasound March 21, 2023 FINDINGS: Hepatomegaly. Normal pancreatic uptake at 5 minutes. Normal hepatic excretion. Gallbladder is visuali zed by 20 minutes. No evidence of acute cholecystitis. Normal common bile duct and small bowel activi ty. Gallbladder ejection fraction 34% at the lower end of the range. Findings suspicious for gallbladder dysfunction. Correlation for chronic cholecystitis. NM/NM hepatobiliary w phar* [id number] IMPRESSION: 1. Gallbladder ejection fraction 34% at the lower end of the range. 2. Findings suspicious for gallbladder dysfunction. 3. Correlation for chronic cholecystitis.
== END 2023-04-18 07:44 | disposition home or self-care (01) ==
LOC: RAD 07:44
PROVIDERS: PCP Family Medicine; Visit Provider Surgery
DX: K81.1 Chronic cholecystitis (principal); K82.8 Other specified diseases of gallbladder
CPT/HCPCS: 78227; A9537

== ENCOUNTER → 2023-07-18 08:39 | Outpatient (BNVA) | payer BC, SELFPAY | PROVIDERS: PCP Family Medicine; Visit Provider Family Medicine | DX: I10 Essential (primary) hypertension (principal) | CPT/HCPCS: 80053; 82043; 85025 ==

== ENCOUNTER 2023-12-26 14:50 | Outpatient (CLI) | payer BC, SELFPAY ==
[2023-12-26 15:54] LABS: Thyroid Stimulating Hormone 0.66 uIU/mL (0.27-4.20)
== END 2023-12-26 14:51 | disposition home or self-care (01) ==
LOC: LAB 14:51
PROVIDERS: PCP Family Medicine; Visit Provider Internal Medicine
DX: E03.9 Hypothyroidism, unspecified (principal); E21.3 Hyperparathyroidism, unspecified
CPT/HCPCS: 84439; 84443

== ENCOUNTER 2023-12-28 17:20 | Outpatient (CLI) | payer BC, SELFPAY ==
[2023-12-28 20:02] LABS: Calcium 9.6 mg/dL (8.5-10.5)
[2023-12-28 20:10] LABS: Parathyroid Hormone 62.4 pg/mL (15-65)
== END 2023-12-28 17:21 | disposition home or self-care (01) ==
LOC: LAB 17:23
PROVIDERS: PCP Family Medicine; Visit Provider Internal Medicine
DX: E03.9 Hypothyroidism, unspecified (principal); E21.3 Hyperparathyroidism, unspecified
CPT/HCPCS: 36415; 82310; 83970

== ENCOUNTER 2024-01-05 08:33 | Outpatient (CLI) | payer BC, SELFPAY ==
--- NOTE | 2024-01-05 10:30 | MM_ITS ---
WS: [email or web address] BILATERAL 3D TOMOSYNTHESIS DIGITAL DIAGNOSTIC MAMMOGRAPHY WITH CAD CLINICAL INFORMATION: history breast ca HISTORY: History of atypical hyperplasia. No prior lumpectomy. COMPARISON: 2021 TECHNIQUE: Bilateral CC, MLO, and ML views. FINDINGS: Scattered fibroglandular densities bilaterally. Stable biopsy clip LEFT breast. A few incidental punc christensen calcifications. Parenchymal pattern is unchanged. Previously described bilateral nodular densiti es are stable. No suspicious focal mass, asymmetry, calcifications, or architectural distortion. No evidence of wai gnancy. IMPRESSION: MM/[place] [id number] BI-RADS: 2-Benign FOLLOW UP: 1 Year Follow-up Recommend return to annual diagnostic mammography.
== END 2024-01-05 08:34 | disposition home or self-care (01) ==
LOC: RAD 08:33
PROVIDERS: PCP Family Medicine; Visit Provider Family Medicine
DX: R92.323 Mammographic fibroglandular density, bilateral breasts (principal); R92.1 Mammographic calcification found on diagnostic imaging of breast
CPT/HCPCS: 77062; G0279

== ENCOUNTER → 2024-01-16 08:09 | Outpatient (BNVA) | payer BC, SELFPAY | PROVIDERS: PCP Family Medicine; Visit Provider Family Medicine | DX: I10 Essential (primary) hypertension (principal) | CPT/HCPCS: 80053; 80061 ==

== ENCOUNTER 2024-01-23 14:40 | Outpatient (CLI) | payer BC, SELFPAY ==
--- NOTE | 2024-01-23 15:00 | XR_ITS ---
WS: [id number] DEXA (DUAL ENERGY X-RAY ABSORPTIOMETRY) Bone mineral density was performed using a Iotera machine. HISTORY: postmenopausal COMPARISON: 06/04/2020 Lumbar spine BMD (L1-L4): 0.966 g/cm2 T score: -1.8 Z score: -0.9 Total hip BMD: Left: 0.906 g/cm2. T score: -0.8 Z score: -0.1 Right: 0.950 g/cm2. T score: -0.5 Z score: 0.2 10 year probability of a major osteoporotic fracture is 13.8%. Compared to the prior study from 06/04/2020. Lumbar spine bone mineral density has decreased by 7.4%. Bilateral hips bone mineral density has decreased by 10.4%. IMPRESSION: OSTEOPENIA based upon the WHO classification for females. Significantly decrease in both the hips and lumbar spine since the prior study from 06/04/2020.
== END 2024-01-23 14:41 | disposition home or self-care (01) ==
LOC: RAD 14:40
PROVIDERS: PCP Family Medicine; Visit Provider Family Medicine
DX: Z78.0 Asymptomatic menopausal state (principal); M85.80 Other specified disorders of bone density and structure, unspecified site
CPT/HCPCS: 77080

== ENCOUNTER 2024-06-04 05:57 | Outpatient (CLI) | payer BC, SELFPAY ==
--- NOTE | 2024-06-04 06:15 | US_ITS ---
WS: [email or web address] RIGHT UPPER QUADRANT ULTRASOUND HISTORY: [place] COMPARISON: 03/21/2023 Liver: 14.5 cm in length. Normal size liver. Surface of the liver continues to be very minimally nodu lar. No mass or bile duct dilatation. Portal Vein: Normal hepatopetal flow with monophasic waveform. Gallbladder: Normally distended gallbladder with no stones or wall thickening. CBD: 0.4 cm Pancreas: Normal size and echogenicity. Right kidney: 11.0 cm in length. Normal size and echogenicity. No hydronephrosis or mass. Aorta and IVC: Unremarkable abdominal aorta and IVC. No ascites. US/US liver [id number] IMPRESSION: Mild heterogeneity of the liver. Similar to the prior study. No mass. Likely he patic steatosis. Negative gallbladder.
--- NOTE | 2024-06-04 06:45 | US_ITS ---
WS: [id number] THYROID ULTRASOUND HISTORY: thyroid nodule COMPARISON: 04/21/2022 Right lobe: 1.1 cm x 1.4 cm x 3.2 cm (w x ap x l). Volume: 2.3 cm3. Coarse echotexture throughout a slightly heterogeneous and nodular gland. There is no discrete mass. No echogenic foci or increased vascularity. Left lobe: 1.2 cm x 1.4 cm x 3.5 cm (w x ap x l). Volume: 2.8 cm3. Coarse echotexture throughout a heterogeneous gland. No mass. No increased vascularity. Isthmus: 0.3 cm. US/US thyroid [id number] IMPRESSION: Mildly heterogeneous nodular gland. Similar to the study of 04/21/2022. No mass or echogenic foci identified.
== END 2024-06-04 05:58 | disposition home or self-care (01) ==
PROVIDERS: PCP Family Medicine; Visit Provider Family Medicine
DX: K75.81 Nonalcoholic steatohepatitis (NASH) (principal); E04.1 Nontoxic single thyroid nodule; E21.3 Hyperparathyroidism, unspecified; E07.9 Disorder of thyroid, unspecified; E03.9 Hypothyroidism, unspecified
CPT/HCPCS: 76536; 76705

== ENCOUNTER → 2024-07-02 09:11 | Outpatient (BNVA) | payer BC, SELFPAY | PROVIDERS: PCP Family Medicine; Visit Provider Internal Medicine | DX: E07.9 Disorder of thyroid, unspecified (principal); E21.3 Hyperparathyroidism, unspecified; E03.9 Hypothyroidism, unspecified; E55.9 Vitamin D deficiency, unspecified | CPT/HCPCS: 36415; 82306; 82310; 83970; 84439; 84443 ==

== ENCOUNTER 2024-12-25 07:00 | Outpatient (CLI) | payer BC, SELFPAY ==
[2024-12-25 08:16] LABS: Calcium 10.1 mg/dL (8.5-10.5); Parathyroid Hormone 75.9 pg/mL (15-65)
[2024-12-25 08:24] LABS: 25 Hydroxy Vitamin D 45 ng/mL (30-100); Thyroid Stimulating Hormone 2.31 uIU/mL (0.27-4.20)
[2024-12-25 08:57] LABS: Free T4 Free Thyroxine 1.83 ng/dL (0.82-1.77)
== END 2024-12-25 07:01 | disposition home or self-care (01) ==
LOC: LAB 07:01
PROVIDERS: PCP Family Medicine; Visit Provider Internal Medicine
DX: E07.9 Disorder of thyroid, unspecified (principal); E21.3 Hyperparathyroidism, unspecified; E03.9 Hypothyroidism, unspecified; E55.9 Vitamin D deficiency, unspecified
CPT/HCPCS: 82306; 82310; 83970; 84439; 84443

== ENCOUNTER → 2024-12-31 09:34 | Outpatient (BNVA) | payer BC, SELFPAY | PROVIDERS: PCP Family Medicine; Visit Provider Internal Medicine | DX: E03.9 Hypothyroidism, unspecified (principal); E21.3 Hyperparathyroidism, unspecified | CPT/HCPCS: 36415; 84439 ==

== ENCOUNTER → 2025-01-21 06:49 | Outpatient (BNVA) | payer BC, SELFPAY | PROVIDERS: PCP Family Medicine; Visit Provider Podiatrist Foot & Ankle Surgery | DX: L60.3 Nail dystrophy (principal); L60.8 Other nail disorders; M21.612 Bunion of left foot; M21.622 Bunionette of left foot | CPT/HCPCS: 73630 ==

== ENCOUNTER 2025-02-28 07:57 | Outpatient (CLI) | payer BC, SELFPAY ==
--- NOTE | 2025-02-28 08:02 | MM_ITS ---
WS: [email or web address] BILATERAL 3D TOMOSYNTHESIS DIGITAL DIAGNOSTIC MAMMOGRAPHY WITH CAD CLINICAL INFORMATION: hx of breast cancer HISTORY: Diagnostic mammogram. No current complaints. COMPARISON: 2023 TECHNIQUE: Bilateral CC and MLO views. FINDINGS: Scattered fibroglandular densities bilaterally. No suspicious focal mass, asymmetry, calcifications, or architectural distortion. No evidence of malignancy. Incidental punctate calcifications. Stable biopsy clip LEFT breast. MM/MM diag BI tomosynthesis [id number] IMPRESSION: DENSITY: There are scattered areas of fibroglandular density. BI-RADS: 2 - Benign. FOLLOW UP: 1 Year Follow-up Recommend return to annual diagnostic mammography.
== END 2025-02-28 07:58 | disposition home or self-care (01) ==
PROVIDERS: PCP Family Medicine; Visit Provider Family Medicine
DX: N64.4 Mastodynia (principal); R92.323 Mammographic fibroglandular density, bilateral breasts; R92.1 Mammographic calcification found on diagnostic imaging of breast
CPT/HCPCS: 77062; G0279

== ENCOUNTER 2025-03-20 06:49 | Day surgery (SDC) | payer BC, SELFPAY ==
[2025-03-20 07:10] VITALS: BP 141/83; PULSE 65; RESP 17; TEMP 36.1; O2SAT 96; BMI 29.0
[2025-03-20] MEDS: sodium chloride 0.9% 1,000 ML 15 ML IV (07:13)
--- NOTE | 2025-03-20 07:42 | W.PM.OPSUD ---
Surgery/Procedure H&P Update DATE OF PROCEDURE: March 20, 2025 DATE H&P PERFORMED: 03/13/25 H&P UPDATE INFORMATION: I have reviewed H&P completed within last 30 days, I have examined patient prior to procedure, No changes to prior documentation, Changes to prior documentation as noted here and Risks and benefits of the procedure reviewed PLANNED PROCEDURE: Operation Date: 03/20/25 08:20 Proposed Procedures p Colonoscopy [id number] G0105, Z12.11(Not Applicable) - He Quigley MD
--- NOTE | 2025-03-20 07:47 | ANES.PREANE2 ---
Pre-Anesthetic Assessment Height/Weight: Height 1.68 m Weight 81.647 kg Temp Pulse Resp BP Pulse Ox O2 Del Method 97.0 F L 65 17 141/83 96 Room Air 03/20/25 07:10 03/20/25 07:10 03/20/25 07:10 03/20/25 07:10 03/20/25 07:10 03/20/25 07:10 Preop Diagnosis: Family history of colon CA Operation Date: 03/20/25 08:20 Proposed Procedures p Colonoscopy [id number], Z12.11(Not Applicable) - eH Quigley MD Familial anesthetic complications: none Was Beta Trina taken within 24 hours: N/A Was Clonidine taken within 24 hours: N/A Last intake: Intake Last Liquid Date 03/19/25 Last Liquid Time 21:30 Last Solid Date 03/18/25 Last Solid Time 18:30 Social No alcohol and No tobacco Exam alert and oriented x 3 Airway Submandibular: within normal limits Cervical ROM: within normal limits Mallampati: Class II Dentition: full History/ROS No significant history except as noted Pulmonary Sleep Apnea (cpap) CV/HEM Hypertension None reported Hepatic None reported GI Gastroesophageal Reflux Disease Metabolic Hyperlipidemia and Thyroid Disease [facility] [place] None reported Neuropsych None reported Anesthetic Plan ASA status: 3 Anesthesia: Anesthesia Evaluation and MAC Medications/Allergies Home Medications ?Medication ?Instructions ?Recorded ?Confirmed ?Last Taken ?Type CPAP #1 ea 11/16/19 03/13/25 03/19/25 06:00 Rx magnesium 250 mg tablet 500 mg PO DAILY 12/30/20 03/14/25 03/19/25 06:00 History cetirizine 10 mg tablet (Zyrtec) 10 mg PO DAILY #90 tabs 08/20/24 03/14/25 03/19/25 06:00 Rx lisinopril 20 mg tablet 20 mg PO DAILY #90 tabs 02/15/25 03/14/25 03/19/25 06:00 Rx ondansetron 8 mg disintegrating 8 mg PO Q8H PRN nausea and 03/13/25 03/14/25 03/19/25 06:00 Rx tablet vomiting #3 tabs alendronate 70 mg tablet 70 mg PO .WKLY 03/14/25 03/14/25 03/19/25 06:00 History betamethasone valerate 0.1 % 1 applic topical BID PRN Outbreak 03/14/25 03/14/25 03/19/25 06:00 History topical cream calcium 600 mg (as 1 tab PO DAILY 03/14/25 03/14/25 03/19/25 06:00 History carbonate)-vitamin D3 10 mcg (400 unit) tablet (Calcium 600 + D(3)) levothyroxine 125 mcg tablet 125 mcg PO DAILY 03/14/25 03/14/25 03/19/25 06:00 History montelukast 10 mg tablet 10 mg PO DAILY PRN Allergy Symptoms 03/14/25 03/14/25 03/19/25 06:00 History nystatin 100,000 unit/gram topical 1 applic topical BID PRN Outbreak 03/14/25 03/14/25 03/19/25 06:00 History cream nystatin 100,000 unit/gram topical 1 applic topical BID PRN Outbreak 03/14/25 03/14/25 03/19/25 06:00 History powder omeprazole 40 mg capsule,delayed 40 mg PO DAILY 03/14/25 03/14/25 03/19/25 06:00 History release ropinirole 0.5 mg tablet 0.5 mg PO BEDTIME 03/14/25 03/14/25 03/19/25 06:00 History Allergies Allergy/AdvReac Type Severity Reaction Status Date / Time doxycycline Allergy Severe ADR-Diarrhe Verified 03/20/25 07:08 a Current Medications Generic Name Dose Route Start Last Admin Trade Name Freq PRN Reason Stop Dose Admin Sodium Chloride 1,000 mls @ 15 mls/hr 03/20/25 06:56 03/20/25 07:13 Sodium Chloride 0.9% IV 03/21/25 06:55 15 mls/hr .Q24H PRN Administration COLONOSCOPY FLUIDS PFSH Anesthesia Medical History STEPHANIE on CPAP Acute bronchitis and bronchiolitis Family history of colon cancer URI with cough and congestion Allergic rhinitis due to allergen History of 2019 novel coronavirus disease (COVID-19) Varicose veins of left lower extremity Plantar fasciitis, bilateral Hot flashes due to menopause Sleep apnea Hypothyroidism Essential hypertension Mass of soft tissue of lower extremity Surgical History History of foot surgery H/O colonoscopy 7 yrs ago H/O excision of mass left lower leg. DOS:10/26/19 History of appendectomy H/O tubal ligation H/O carpal tunnel repair Family History Brother Cancer colon cancer partial colon removal Father Cancer colon cancer Denies family history of Diabetes CAD (coronary artery disease) Clotting disorder Dementia Hyperlipidemia Psychiatric illness Chronic kidney disease (CKD) Suicide Anesthesia complication Bleeding disorder Family history of premature coronary artery disease Lung disease Hypertension Stroke Social History Smoking and tobacco/nicotine status: former use of tobacco/nicotine Alcohol intake: never Substance/Drug Use: never Household members: spouse Marital status: Current occupational status: employed
[2025-03-20 08:41] VITALS: BP 112/70; PULSE 97; RESP 16; TEMP 36.6; O2SAT 98
--- NOTE | 2025-03-20 08:41 | ANE.PACU2 ---
Inpatient post-anesthesia follow up: Airway intact: Yes Vital signs: Temperature 97.0 F Pulse Rate 65 Respiratory Rate 17 Blood Pressure 141/83 Pulse Oximetry 96 Oxygen Delivery Me thod Room Air Oxygen Flow Rate Fraction of Inspir ed Oxygen Hydration adequate: Yes Nausea and vomiting: No Pain level: 1 Mental status: Baseline
== END 2025-03-20 09:10 | disposition home or self-care (01) ==
PROVIDERS: PCP Family Medicine; Visit Provider Surgery
PROC: 0DJD8ZZ Inspection of Lower Intestinal Tract, Via Natural or Artificial Opening Endoscopic (ICD-10-PCS; CPT 45378; principal; 2025-03-20 08:20)
DX: Z12.11 Encounter for screening for malignant neoplasm of colon (principal); K62.1 Rectal polyp; E78.5 Hyperlipidemia, unspecified; K21.9 Gastro-esophageal reflux disease without esophagitis; G47.33 Obstructive sleep apnea (adult) (pediatric); E03.9 Hypothyroidism, unspecified; I10 Essential (primary) hypertension; Z79.899 Other long term (current) drug therapy; Z79.890 Hormone replacement therapy; Z87.891 Personal history of nicotine dependence
CPT/HCPCS: 45380; 88305; J2704; J3490; J7030; J9999

== ENCOUNTER → 2025-04-05 17:51 | Outpatient (BNVA) | payer BC, SELFPAY | PROVIDERS: PCP Family Medicine; Visit Provider Emergency Medicine | DX: J02.9 Acute pharyngitis, unspecified (principal) | CPT/HCPCS: 87071; 87880 ==

== ENCOUNTER → 2025-06-08 18:16 | Outpatient (BNVA) | payer BC, SELFPAY | PROVIDERS: PCP Family Medicine; Visit Provider Emergency Medicine | DX: J02.9 Acute pharyngitis, unspecified (principal) | CPT/HCPCS: 87071; 87426; 87880 ==

== ENCOUNTER 2025-06-17 14:48 | Outpatient (CLI) | payer BC, SELFPAY ==
[2025-06-17 16:19] LABS: Calcium 10.4 mg/dL (8.5-10.5)
[2025-06-17 16:27] LABS: Free T4 Free Thyroxine 1.46 ng/dL (0.82-1.77); Thyroid Stimulating Hormone 1.39 uIU/mL (0.27-4.20)
== END 2025-06-17 14:49 | disposition home or self-care (01) ==
LOC: LAB 14:50
PROVIDERS: PCP Family Medicine; Visit Provider Internal Medicine
DX: E55.9 Vitamin D deficiency, unspecified (principal); L30.9 Dermatitis, unspecified; M85.80 Other specified disorders of bone density and structure, unspecified site
CPT/HCPCS: 36415; 82306; 82310; 83970; 84439; 84443

== ENCOUNTER → 2025-08-26 13:10 | Outpatient (BNVA) | payer BC, SELFPAY | PROVIDERS: PCP Family Medicine; Visit Provider Family Medicine | DX: I10 Essential (primary) hypertension (principal); E07.9 Disorder of thyroid, unspecified | CPT/HCPCS: 80053; 82310; 83036; 83970; 84439; 84443; 85025 ==